=== PATIENT | male | born 1965 | race Caucasian/White ===

== ENCOUNTER 2019-06-08 01:37 | Inpatient (IN) | payer OTHER ==
[~2019-06-08] VITALS: Ht 177.8 cm; Wt 67.8 kg
[2019-06-08 01:37] VITALS: BP 113/80
[~2019-06-08 01:37] MED LIST: ACETAMINOPHEN-1 EAC1 ORAL; ACETAMINOPHEN325 M1 ORAL; ATROVENT HFA12.9 GM HHN; DEPAKOTE250 MG PO; DOCUSATE SODIU100 MG ORAL; KETOCONAZOLE; LEVOTHYROXINE75 MCG ORAL; MEGESTROL400 MG/11 PO; MILK OF MA400 MG/51 ORAL; MIRTAZAPINE30 MG ORAL; MULTIVITAMINS1 EAC8 ORAL; TRIUMEQ 600-501 EACH PO; VITAMIN C500 M1 ORAL
--- NOTE | 2019-06-08 01:37 | NUR ---
ED Nurse Note: PT BIB [facility] FROM [facility] DUE TO "INCREASED AGGRESSION". PT IS YELLING AT STAFF AND REFUSING TO BE PLACED IN GOWN. IV LINE WAS ABLE TO BE ESTABLISHED. BLOOD SPECIMEN TO LAB
--- NOTE | 2019-06-08 01:58 | NUR ---
ED Nurse Note: PT WAS PROVIDED A [place] WITH [facility] ([facility]) APPROVAL.
--- NOTE | 2019-06-08 02:05 | NUR ---
ED Nurse Note: PT REFUSES I&O CATHETER FOR RETRIEVAL OF URINE. ERMD NOTIFIED. WILL AWAIT FURTHER ORDERS.
[2019-06-08 02:17] LABS: HEMATOCRIT 39.1 % (42.0-52.0); HEMOGLOBIN 12.5 G/DL (14.2-18.0); MEAN CORPUSCULAR VOLUME 83 FL (80-99); PLATELET COUNT 60 K/UL (150-450); RED BLOOD COUNT 4.73 M/UL (4.70-6.10); RED CELL DISTRIBUTION WIDTH 15.9 % (11.6-14.8); WHITE BLOOD COUNT 5.1 K/UL (4.8-10.8)
[2019-06-08 02:21] LABS: ANION GAP 7 mmol/L (5-15); BLOOD UREA NITROGEN 22 mg/dL (7-18); CALCIUM 8.6 MG/DL (8.5-10.1); CARBON DIOXIDE 25 MMOL/L (21-32); CHLORIDE 108 MMOL/L (98-107); CREATININE 1.3 MG/DL (0.55-1.30); SODIUM 140 MMOL/L (136-145)
[2019-06-08 02:26] LABS: ALANINE AMINOTRANSFERASE 22 U/L (12-78); ALBUMIN 2.2 G/DL (3.4-5.0); ALBUMIN/GLOBULIN RATIO 0.4 (1.0-2.7); ALKALINE PHOSPHATASE 83 U/L (46-116); AMMONIA 30 umol/L (11-32); ASPARTATE AMINO TRANSFERASE 35 U/L (15-37); BILIRUBIN,TOTAL 0.3 MG/DL (0.2-1.0)
--- NOTE | 2019-06-08 02:39 | NUR ---
ED Nurse Note: PT REFUSES CRE/VRE SWAB.
[2019-06-08] MEDS ORDERED: BISACODYL10 M1 RC (02:54)
[2019-06-08] MEDS ORDERED: CEPHALEXIN500 MG ORAL (02:54)
[2019-06-08] MEDS ORDERED: INVEGA SUS156 MG/11 IM (02:54)
[2019-06-08] MEDS ORDERED: RISPERDAL2 MG ORAL (02:54)
[2019-06-08] MEDS ORDERED: MIRTAZAPINE15 MG ORAL (02:54)
[2019-06-08] MEDS ORDERED: VITAMIN C500 MG/11 PO (02:54)
[2019-06-08 03:50] VITALS: BP 95/58
--- NOTE | 2019-06-08 04:30 | NUR ---
TRANSFER TO FLOOR: Patient transferred to Med Surg as ordered, per ERMD . Report given to SHAWNA Galindo. Pt has no Belongings. vss.
--- NOTE | 2019-06-08 04:40 | NUR ---
NURSE NOTES: Received report via phone from SHAWNA Amato from ED. Patient arrived to the floor via onesimorgriffin, mitch, AOx2, VSS, able to make needs known. Patient is angry and shouting.No belongings. Appears dishevelled and has a few abrasions on forehead. He stated he didn't know where he got them. Called for admission orders, awaiting call back. Will continue to monitor and reassess
--- NOTE | 2019-06-08 05:09 | Emergency Room Report ---
History of Present Illness General Chief Complaint: Altered Mental Status Source: Medical Record, EMS Present Illness HPI 54-year-old male presents ED for evaluation. Brought in by EMS for aggressive behavior. Coming from custodial facility. Nursing states that patient has been aggressive with the nursing staff today. History of psych. Patient states that he does not like the nursing staff. Denies hearing voices. Denies SI or HI. Denies alcohol use. Denies drug use. No other aggravating relieving factors. Denies any other associated symptoms Allergies: Coded Allergies: No Known Allergies (Unverified , 02/12/19) Patient History Past Medical History: GERD, psych hx Past Surgical History: none Pertinent Family History: none Social History: Denies: smoking, alcohol use, drug use Immunizations: UTD Reviewed Nursing Documentation: PMH: Agreed; PSxH: Agreed Nursing Documentation-PMH Past Medical History: No History, Except For Hx Cardiac Problems: No Hx Diabetes: No - ism Hx Cancer: No Hx Gastrointestinal Problems: Yes - Gastric Ulcer Hx Neurological Problems: No Review of Systems All Other Systems: negative except mentioned in HPI Physical Exam Vital Signs Date Time Temp Pulse Resp B/P (MAP) Pulse Ox O2 Delivery O2 Flow Rate FiO2 06/08/19 01:35 98.4 90 18 110/75 (87) 100 Room Air Sp02 EP Interpretation: reviewed, normal General Appearance: alert, GCS 15, non-toxic, cachetic, thin, other - agitated Head: normocephalic Eyes: bilateral eye normal inspection, bilateral eye PERRL ENT: normal ENT inspection Neck: normal inspection Respiratory: chest non-tender, lungs clear, normal breath sounds, speaking full sentences Cardiovascular #1: regular rate, rhythm, no edema Gastrointestinal: normal bowel sounds, non tender, soft, non-distended, no guarding, no rebound Rectal: deferred Genitourinary: no CVA tenderness Musculoskeletal: normal inspection Neurologic: alert, oriented x3, responsive, motor strength/tone normal, sensory intact, speech normal Psychiatric: other - agitated Skin: other - see nursing notes Lymphatic: normal inspection Medical Decision Making Diagnostic Impression: Primary Impression: Acute metabolic encephalopathy Additional Impression: Agitation ER Course Hospital Course 54 yo M presents with aggressive behavior at SNF Differential diagnoses include: ETOH, psychosis, delerium Clinical course She placed on stretcher. On card decorator. After initial history and physical ordered labs, IV fluids, ativan Labs reviewed-electrolytes okay, no leukocytosis, hemoglobin/hematocrit stable, Patient been recently admitted here for similar presentation requiring psychiatric evaluation. Given Ativan in the ED. case discussed with Dr. Menendez and he agreed to accept the patient to his service for further care and support i. I feel this is a highly complex case requiring extensive working including EKG/Rhythm strip, Xray/CT/US, Blood/urine lab work, repeat exams while in ED, and administration of strong opiates/narcotics for pain control, admission to hospital or close patient follow up. Diagnosis - acute metabolic encephalopathy, agitation Admitted to floor in serious condition Labs Test 06/08/19 01:35 White Blood Count 5.1 K/UL (4.8-10.8) Red Blood Count 4.73 M/UL (4.70-6.10) Hemoglobin 12.5 G/DL (14.2-18.0) Hematocrit 39.1 % (42.0-52.0) Mean Corpuscular Volume 83 FL (80-99) Mean Corpuscular Hemoglobin 26.5 PG (27.0-31.0) Mean Corpuscular Hemoglobin Concent 32.1 G/DL (32.0-36.0) Red Cell Distribution Width 15.9 % (11.6-14.8) Platelet Count 60 K/UL (150-450) Mean Platelet Volume 8.0 FL (6.5-10.1) Neutrophils (%) (Auto) % (45.0-75.0) Lymphocytes (%) (Auto) % (20.0-45.0) Monocytes (%) (Auto) % (1.0-10.0) Eosinophils (%) (Auto) % (0.0-3.0) Basophils (%) (Auto) % (0.0-2.0) Sodium Level 140 MMOL/L (136-145) Potassium Level 4.0 MMOL/L (3.5-5.1) Chloride Level 108 MMOL/L (98-107) Carbon Dioxide Level 25 MMOL/L (21-32) Anion Gap 7 mmol/L (5-15) Blood Urea Nitrogen 22 mg/dL (7-18) Creatinine 1.3 MG/DL (0.55-1.30) Estimat Glomerular Filtration Rate 57.5 mL/min (>60) Glucose Level 92 MG/DL (74-106) Calcium Level 8.6 MG/DL (8.5-10.1) Total Bilirubin 0.3 MG/DL (0.2-1.0) Aspartate Amino Transf (AST/SGOT) 35 U/L (15-37) Alanine Aminotransferase (ALT/SGPT) 22 U/L (12-78) Alkaline Phosphatase 83 U/L (46-116) Ammonia 30 umol/L (11-32) Total Protein 7.7 G/DL (6.4-8.2) Albumin 2.2 G/DL (3.4-5.0) Globulin 5.5 g/dL Albumin/Globulin Ratio 0.4 (1.0-2.7) Salicylates Level 4.7 ug/mL (2.8-20) Acetaminophen Level < 2 MCG/ML (10-30) Serum Alcohol < 3 mg/dL Last Vital Signs Date Time Temp Pulse Resp B/P (MAP) Pulse Ox O2 Delivery O2 Flow Rate FiO2 06/08/19 04:29 98.5 93 21 95/56 97 Room Air Status: improved Disposition: ADMITTED INPATIENT Condition: Serious Referrals: Juan Reyes MD (PCP) Shane Nieto MD Jun 08, 2019 05:09
[2019-06-08 05:16] VITALS: BP 120/84
[2019-06-08] MEDS ORDERED: Tylenol #3 tab (300mg/30mg) ORAL PRN (06:30)
[2019-06-08] MEDS: Levothyroxine 25mcg tab ORAL SCH (07:14)
[2019-06-08] MEDS ORDERED: oxyCODONE HCL/Acetaminophen 5/325mg ORAL PRN (07:42)
--- NOTE | 2019-06-08 07:42 | NUR ---
HAND-OFF: Report given to Kylah , patient in stable condition, plan of care endorsed.
--- NOTE | 2019-06-08 07:44 | NUR ---
NURSE NOTES: Received report from SHAWNA Galindo. Pt in bed, awake, agitated, A/Ox1 self, reoriented pt place, time, situation. No complaints of pain, no apparent distress noted, slight edema to left foot, dry skin, abrasion to anterior head noted, IV site patent and flushed, bed in lowest position, call light within reach.
[2019-06-08 08:00] VITALS: BP 136/65
[2019-06-08] MEDS: Milk of Magnesia 30ml Ud ORAL SCH ×2 (09:00→09:08)
[2019-06-08] MEDS: Ascorbic Acid 500mg tab ORAL SCH (09:07)
[2019-06-08] MEDS: Multivitamin w/Minerals tab ORAL SCH (09:07)
[2019-06-08] MEDS: Docusate 100mg cap ORAL SCH (09:07)
--- NOTE | 2019-06-08 09:25 | History and Physical ---
History of Present Illness General Date patient seen: Jun 08, 2019 Reason for Hospitalization: Altered Mental Status Present Illness HPI 54 year old man with history of HIV and AIDS, paranoid schizophrenia, hypothyroidism who was Brought in by EMS for aggressive behavior. Coming from long term facility ([facility]). Nursing states that patient has been aggressive with the nursing staff today. Information obtained via chart review. Patient asked me to leave the room but upon reviewing ER chart he stated that he does not like the nursing staff. Denies hearing voices. Denies SI or HI. Denies alcohol use. Denies drug use. No other aggravating relieving factors. Denies any other associated symptoms. Patient is in denial of his HIV diagnosis. He had a similar presentation and admission in 02/08 and was extensively worked up by neurology, psychiatry, ID and hematology. The patient is uncooperative, will not allow me examine him nor answer my questions. Social History: Patient will not talk Family History Patient will not talk Allergies: Coded Allergies: No Known Allergies Allergies: Coded Allergies: No Known Allergies (Unverified , 02/12/19) Medication History Scheduled Ascorbic Acid* (Vitamin C*), 500 MG ORAL DAILY, (Reported) Cephalexin* (Keflex*), 500 MG ORAL EVERY 12 HOURS, (Reported) Divalproex Sodium* (Depakote*), 1,000 MG PO BID, (Reported) Docusate Sodium* (Docusate Sodium*), 100 MG ORAL DAILY, (Reported) Ipratropium [place] (Atrovent Hfa), 1 UNIT HHN EVERY 4 HOURS, (Reported) Levothyroxine Sodium* (Levothyroxine Sodium*), 25 MCG ORAL DAILY, (Reported) Magnesium Hydroxide* (Milk Of Magnesia*), 30 ML ORAL DAILY, (Reported) Megestrol Acetate (Megestrol Acetate), 400 MG PO BID, (Reported) Mirtazapine* (Remeron*), 30 MG ORAL BEDTIME, (Reported) Mirtazapine* (Remeron*), 15 MG ORAL BEDTIME, (Reported) Multivitamin With Minerals (Multivitamins With Minerals*), 1 TAB ORAL DAILY, ( Reported) Risperidone* (Risperdal*), 3 MG ORAL DAILY, (Reported) Scheduled PRN Acetaminophen With Codeine (T#3) (Tylenol #3 Tab*), 1 TAB ORAL Q6H PRN for For Pain, (Reported) Acetaminophen* (Acetaminophen 325MG Tablet*), 650 MG ORAL Q6H PRN for Mild Pain (Pain Scale 1-3), (Reported) Miscellaneous Medications Abacavir/Dolutegravir/Lamivudi (Triumeq 600-50-300 mg Tablet), 1 EACH PO, ( Reported) Bisacodyl (Bisacodyl), 10 MG RC, (Reported) Paliperidone Palmitate (Invega Sustenna), 156 MG IM, (Reported) Vit C/Ascorbate Ca/Ascorb Sod (Vitamin C 500 Mg/15 Ml Liquid), 500 MG PO, ( Reported) [nizral shampoo], (Reported) Patient History Healthcare decision maker Resuscitation status Full Code Advanced Directive on File No Review of Systems ROS Narrative unable to obtain as patient uncooperative Physical Exam Physical Exam Narrative unable to examine due to lack of cooperation Last 24 Hour Vital Signs Date Time Temp Pulse Resp B/P (MAP) Pulse Ox O2 Delivery O2 Flow Rate FiO2 06/08/19 08:00 98.0 94 17 136/65 (88) 100 06/08/19 07:34 Room Air 06/08/19 05:16 98.0 94 18 120/84 (96) 98 06/08/19 05:06 Room Air 06/08/19 04:29 98.5 93 21 95/56 97 Room Air 06/08/19 03:50 98.2 94 23 95/58 98 Room Air 06/08/19 01:37 94 21 06/08/19 01:37 98.4 91 21 113/80 98 Room Air 06/08/19 01:35 98.4 90 18 110/75 (87) 100 Room Air Intake and Output 06/07/19 06/08/19 19:00 07:00 Intake Total 1000 ml Output Total 0 ml Balance 1000 ml Intake IV Total 1000 ml Output Urine Total 0 ml # Voids 2 Laboratory Tests Test 06/08/19 01:35 White Blood Count 5.1 K/UL (4.8-10.8) Red Blood Count 4.73 M/UL (4.70-6.10) Hemoglobin 12.5 G/DL (14.2-18.0) L Hematocrit 39.1 % (42.0-52.0) L Mean Corpuscular Volume 83 FL (80-99) Mean Corpuscular Hemoglobin 26.5 PG (27.0-31.0) L Mean Corpuscular Hemoglobin Concent 32.1 G/DL (32.0-36.0) Red Cell Distribution Width 15.9 % (11.6-14.8) H Platelet Count 60 K/UL (150-450) L Mean Platelet Volume 8.0 FL (6.5-10.1) Neutrophils (%) (Auto) % (45.0-75.0) Lymphocytes (%) (Auto) % (20.0-45.0) Monocytes (%) (Auto) % (1.0-10.0) Eosinophils (%) (Auto) % (0.0-3.0) Basophils (%) (Auto) % (0.0-2.0) Sodium Level 140 MMOL/L (136-145) Potassium Level 4.0 MMOL/L (3.5-5.1) Chloride Level 108 MMOL/L (98-107) H Carbon Dioxide Level 25 MMOL/L (21-32) Anion Gap 7 mmol/L (5-15) Blood Urea Nitrogen 22 mg/dL (7-18) H Creatinine 1.3 MG/DL (0.55-1.30) Estimat Glomerular Filtration Rate 57.5 mL/min (>60) Glucose Level 92 MG/DL (74-106) Calcium Level 8.6 MG/DL (8.5-10.1) Total Bilirubin 0.3 MG/DL (0.2-1.0) Aspartate Amino Transf (AST/SGOT) 35 U/L (15-37) Alanine Aminotransferase (ALT/SGPT) 22 U/L (12-78) Alkaline Phosphatase 83 U/L (46-116) Ammonia 30 umol/L (11-32) Total Protein 7.7 G/DL (6.4-8.2) Albumin 2.2 G/DL (3.4-5.0) L Globulin 5.5 g/dL Albumin/Globulin Ratio 0.4 (1.0-2.7) L Salicylates Level 4.7 ug/mL (2.8-20) Acetaminophen Level < 2 MCG/ML (10-30) L Serum Alcohol < 3 mg/dL Height (Feet): 5 Height (Inches): 10.00 Weight (Pounds): 150 Medications Current Medications Medications (Trade) Dose Ordered Sig/Guillermo Route PRN Reason Start Time Stop Time Status Last Admin Dose Admin Acetaminophen (Tylenol) 650 mg Q6H PRN ORAL Mild Pain (Pain Scale 1-3) 06/08/19 06:30 07/08/19 06:29 Acetaminophen/ Codeine Phosphate (Tylenol #3) 1 tab Q6H PRN ORAL For Pain 06/08/19 06:30 06/15/19 06:29 Ascorbic Acid (Vitamin C) 500 mg DAILY ORAL 06/08/19 09:00 07/08/19 08:59 06/08/19 09:07 Bisacodyl (Dulcolax) 10 mg DAILYPRN PRN RECTAL Constipation 06/08/19 06:30 07/08/19 06:29 Divalproex Sodium (Depakote) 750 mg BID ORAL 06/08/19 09:00 07/08/19 08:59 06/08/19 09:07 Docusate Sodium (Colace) 100 mg DAILY ORAL 06/08/19 09:00 07/08/19 08:59 06/08/19 09:07 Levothyroxine Sodium (Synthroid) 25 mcg DAILY@0630 ORAL 06/08/19 07:00 07/08/19 06:59 06/08/19 07:14 Magnesium Hydroxide (Mom) 30 ml DAILY ORAL 06/08/19 09:00 07/08/19 08:59 Mirtazapine (Remeron) 15 mg BEDTIME ORAL 06/08/19 21:00 07/08/19 20:59 Multivitamins Therapeutic (Therapeutic Multivitamin) 1 ea DAILY ORAL 06/08/19 09:00 07/08/19 08:59 06/08/19 09:07 Oxycodone/ Acetaminophen (Percocet 10/325) 1 tab Q4H PRN ORAL Severe Pain (Pain Scale 7-10) 06/08/19 07:45 06/15/19 07:44 Oxycodone/ Acetaminophen (Percocet 5-325) 1 tab Q4H PRN ORAL Moderate Pain (Pain Scale 4-6) 06/08/19 07:42 06/15/19 07:41 Risperidone (RisperDAL) 3 mg DAILY ORAL 06/08/19 09:00 07/08/19 08:59 9/16/19 09:07 Assessment/Plan Problem List: (1) Acute metabolic encephalopathy ICD Codes: G93.41 - Metabolic encephalopathy SNOMED: 06708206, 788888486 (2) Paranoid schizophrenia ICD Codes: F20.0 - Paranoid schizophrenia SNOMED: 31233756 (3) AIDS ICD Codes: B20 - Human immunodeficiency virus [HIV] disease SNOMED: 09602520 (4) Agitation ICD Codes: R45.1 - Restlessness and agitation SNOMED: 044708203 (5) Thrombocytopenia associated with AIDS ICD Codes: B20 - Human immunodeficiency virus [HIV] disease; D69.59 - Other secondary thrombocytopenia SNOMED: 130036273 (6) Denial about severity of illness SNOMED: 877558095 (7) Malnutrition ICD Codes: E46 - Unspecified protein-calorie malnutrition SNOMED: 65118896 Status: unchanged Assessment/Plan: 54 year old male with paranoid schizophrenia and AIDS brought in by EMS due to aggressive behavior, per patient he doesn't like the nursing staff. 1. AMS, rule out acute metabolic encephalopathy. ? AIDS dementia and behavioral issues related to HIV labs unremarkable for infection, Tox negative UA pending Seen and evaluated on 02/08 admission by neurology and ID Psychhiatry consult ID consult 2. Chronic thrombocytopenia. associated with AIDS and chronic malnutrition. Evaluated by hematology on recent admission 3. Schizophrenia/ paranoid type. Continue Depakote and risperidone. 4.Hypothyroidism. Continue levothyroxine. check thyroid function tests. I spent 70 minutes on this encounter. 50% or more spent on counselling and care coordination. I spent 35 minute sin chart review. Time of this not reflect time of encounter. Ab Henson M.D. Jun 08, 2019 09:25
[2019-06-08 12:00] VITALS: BP 134/70
--- NOTE | 2019-06-08 12:53 | NUR ---
*-* INSURANCE *-* ALL AVAILABLE CLINICALS HAVE BEEN FAXED TO: [facility]: KAILASH PACHECO P- [phone] F- [phone]....REVIEW/CLINICAL
--- NOTE | 2019-06-08 13:13 | Infectious Diseases Prog Note ---
Assessment/Plan Assessment/Plan Full consult dictated: A) 1) hiv, aids, ams, ? meningitis, ? encephalitis 2) refusing anti-retroviral treatment - asked patient 3 times and he said no to treatmewnt 3) pmh noted 4) allergies - nkda P) 1) prophylaxis started 2) serology ordered, cultures ordered 3) consider psychiatry evaluation, neurology evaluation 4) consider MRI brain and LP 5) d/w Dr. Henson 6) thank you Subjective Allergies: Coded Allergies: No Known Allergies (Unverified , 02/12/19) Objective Vital Signs Last 24 Hour Vital Signs Date Time Temp Pulse Resp B/P (MAP) Pulse Ox O2 Delivery O2 Flow Rate FiO2 06/08/19 12:00 98.1 89 18 134/70 (91) 97 06/08/19 08:00 98.0 94 17 136/65 (88) 100 06/08/19 07:34 Room Air 06/08/19 05:16 98.0 94 18 120/84 (96) 98 06/08/19 05:06 Room Air 06/08/19 04:29 98.5 93 21 95/56 97 Room Air 06/08/19 03:50 98.2 94 23 95/58 98 Room Air 06/08/19 01:37 94 21 06/08/19 01:37 98.4 91 21 113/80 98 Room Air 06/08/19 01:35 98.4 90 18 110/75 (87) 100 Room Air Height (Feet): 5 Height (Inches): 10.00 Weight (Pounds): 150 Laboratory Tests Test 06/08/19 01:35 White Blood Count 5.1 K/UL (4.8-10.8) Red Blood Count 4.73 M/UL (4.70-6.10) Hemoglobin 12.5 G/DL (14.2-18.0) L Hematocrit 39.1 % (42.0-52.0) L Mean Corpuscular Volume 83 FL (80-99) Mean Corpuscular Hemoglobin 26.5 PG (27.0-31.0) L Mean Corpuscular Hemoglobin Concent 32.1 G/DL (32.0-36.0) Red Cell Distribution Width 15.9 % (11.6-14.8) H Platelet Count 60 K/UL (150-450) L Mean Platelet Volume 8.0 FL (6.5-10.1) Neutrophils (%) (Auto) % (45.0-75.0) Lymphocytes (%) (Auto) % (20.0-45.0) Monocytes (%) (Auto) % (1.0-10.0) Eosinophils (%) (Auto) % (0.0-3.0) Basophils (%) (Auto) % (0.0-2.0) Sodium Level 140 MMOL/L (136-145) Potassium Level 4.0 MMOL/L (3.5-5.1) Chloride Level 108 MMOL/L (98-107) H Carbon Dioxide Level 25 MMOL/L (21-32) Anion Gap 7 mmol/L (5-15) Blood Urea Nitrogen 22 mg/dL (7-18) H Creatinine 1.3 MG/DL (0.55-1.30) Estimat Glomerular Filtration Rate 57.5 mL/min (>60) Glucose Level 92 MG/DL (74-106) Calcium Level 8.6 MG/DL (8.5-10.1) Total Bilirubin 0.3 MG/DL (0.2-1.0) Aspartate Amino Transf (AST/SGOT) 35 U/L (15-37) Alanine Aminotransferase (ALT/SGPT) 22 U/L (12-78) Alkaline Phosphatase 83 U/L (46-116) Ammonia 30 umol/L (11-32) Total Protein 7.7 G/DL (6.4-8.2) Albumin 2.2 G/DL (3.4-5.0) L Globulin 5.5 g/dL Albumin/Globulin Ratio 0.4 (1.0-2.7) L Salicylates Level 4.7 ug/mL (2.8-20) Acetaminophen Level < 2 MCG/ML (10-30) L Serum Alcohol < 3 mg/dL Current Medications Medications (Trade) Dose Ordered Sig/Guillermo Route PRN Reason Start Time Stop Time Status Last Admin Dose Admin Acetaminophen (Tylenol) 650 mg Q6H PRN ORAL Mild Pain (Pain Scale 1-3) 06/08/19 06:30 07/08/19 06:29 Acetaminophen/ Codeine Phosphate (Tylenol #3) 1 tab Q6H PRN ORAL For Pain 06/08/19 06:30 06/15/19 06:29 Acyclovir (Zovirax) 400 mg Q12HR ORAL 06/08/19 21:00 07/08/19 20:59 Ascorbic Acid (Vitamin C) 500 mg DAILY ORAL 06/08/19 09:00 07/08/19 08:59 06/08/19 09:07 Bisacodyl (Dulcolax) 10 mg DAILYPRN PRN RECTAL Constipation 06/08/19 06:30 07/08/19 06:29 Divalproex Sodium (Depakote) 750 mg BID ORAL 06/08/19 09:00 07/08/19 08:59 06/08/19 09:07 Docusate Sodium (Colace) 100 mg DAILY ORAL 06/08/19 09:00 07/08/19 08:59 06/08/19 09:07 Levothyroxine Sodium (Synthroid) 25 mcg DAILY@0630 ORAL 06/08/19 07:00 07/08/19 06:59 06/08/19 07:14 Magnesium Hydroxide (Mom) 30 ml DAILY ORAL 06/08/19 09:00 07/08/19 08:59 Mirtazapine (Remeron) 15 mg BEDTIME ORAL 06/08/19 21:00 07/08/19 20:59 Multivitamins Therapeutic (Therapeutic Multivitamin) 1 ea DAILY ORAL 06/08/19 09:00 07/08/19 08:59 06/08/19 09:07 Oxycodone/ Acetaminophen (Percocet 10/325) 1 tab Q4H PRN ORAL Severe Pain (Pain Scale 7-10) 06/08/19 07:45 06/15/19 07:44 Oxycodone/ Acetaminophen (Percocet 5-325) 1 tab Q4H PRN ORAL Moderate Pain (Pain Scale 4-6) 06/08/19 07:42 06/15/19 07:41 Risperidone (RisperDAL) 3 mg DAILY ORAL 06/08/19 09:00 07/08/19 08:59 06/08/19 09:07 Trimethoprim/ Sulfamethoxazole (Bactrim Single Strength) 1 tab DAILY ORAL 06/09/19 09:00 06/16/19 08:59 Sarah Mckeon MD Jun 08, 2019 13:13
--- NOTE | 2019-06-08 15:06 | Diagnostic Imaging Report ---
Indication: Dyspnea Comparison: None A single view chest radiograph was obtained. Findings: There is evidence of emphysema that appears asymmetric and fairly focal involving the left upper lung field. Heart size is normal. No pleural effusion seen. No pneumothorax identified. IMPRESSION: Localized emphysema in the left upper lobe.
--- NOTE | 2019-06-08 15:17 | NUR ---
NURSE NOTES: Confirmed with Dr. Mckeon no need to isolate pt for TB. TB is no suspected, TSPOT is to R/O PNA and infiltrates. Notified MD of CXR results, okayed to change TSPOT order to 06/09/19
[2019-06-08 16:00] VITALS: BP 131/74
[2019-06-08] MEDS ORDERED: LORazepam Inj 2mg/ml 1ml IM SCH (16:00)
[2019-06-08] MEDS ORDERED: DiphenhydrAMINE 50mg/ml Inj IM SCH (16:00)
--- NOTE | 2019-06-08 20:45 | Consultation ---
DATE OF CONSULTATION: 06/08/2019 CONSULTING PHYSICIAN: Miguel Smallwood M.D. HISTORY OF PRESENT ILLNESS: The patient is a 54-year-old male who is well known to this physician from previous admission. The patient has a history of HIV/AIDS with schizophrenia, hypothyroidism. The patient came in due to aggressive behavior. The patient is presenting waxing and waning consciousness, agitation, refusing care, and refusing the lab draws. Poor insight. As a poor historian, yelled at me and stated that he wants to be left alone. PAST PSYCHIATRIC HISTORY: Schizophrenia, has been treated with risperidone and mirtazapine in the past. PAST MEDICAL HISTORY: Significant for HIV/AIDS, malnutrition. ALLERGIES: No known drug allergies. SUBSTANCE ABUSE HISTORY: The patient has a history of illicit drug use, however, now his system is negative for any drugs. MENTAL STATUS EXAMINATION: The patient is alert, oriented times self, place. Mood is irritable. Affect is constricted. Congruent mood. Thought process is concrete. Thought content, no suicidal or homicidal ideation. ASSESSMENT: Irving I Schizophrenia. Irving II Deferred. Irving III As above. HIV/AIDS. Irving IV Moderate. Irving V 25. PLAN: 1. The patient will be started on risperidone 3 mg at bedtime. 2. Remeron 50 mg at bedtime. 3. The patient may not refuse medications. 4. The patient lacks capacity to leave AMA. Miguel Smallwood M.D. DR: VINCE JOB#: [id number] CC:
[2019-06-08] MEDS: Acyclovir 200mg Cap ORAL SCH (21:00)
--- NOTE | 2019-06-08 21:30 | Consultation ---
DATE OF CONSULTATION: 06/08/2019 INFECTIOUS DISEASE CONSULTATION CONSULTING PHYSICIAN: Sarah Mckeon M.D. ATTENDING PHYSICIAN: Juan Reyes M.D. REFERRING PHYSICIAN: Dr. Ab Henson. REASON FOR CONSULTATION: History of HIV/AIDS with possible meningitis encephalitis. CHIEF COMPLAINT: The patient's chief complaint coming into the hospital is encephalopathy. HISTORY OF PRESENT ILLNESS: This is a 54-year-old male with history of HIV and AIDS and noncompliance with anti-retroviral therapy. The patient presents with altered mental status, encephalopathy. The patient is quite cachectic, but is responsive to my questions. Infectious Disease consultation is requested to rule out infectious etiology for encephalopathy. The patient again has been noncompliant with anti-retroviral therapy. It was suggested in the last admission for him to try Triumeq, which was not available here as an outpatient, but it does not look like he has been taking that and currently when I asked him 2 to 3 times if he wants anti-retroviral therapy, he clearly says no. The patient's most recent CD4 viral load on last admission showed the CD4 count of 165 and viral load of 19,890. The patient's serology has been ordered on the patient and put him back on his prophylaxis and on last admission, he had questionable herpes zoster infection or some type of herpes rash and was given acyclovir. Case discussed with Dr. Henson. REVIEW OF SYSTEMS: CONSTITUTIONAL: The patient is responsive, but quite cachectic. He has no fevers. CARDIAC: No chest pain. GASTROINTESTINAL: No nausea, vomiting, or diarrhea. GENITOURINARY: No Zacarias. PULMONARY: No shortness of breath noted. SKIN: No new rash noted. NEUROLOGIC: No seizures noted. He is quite cachectic, fatigued, and generalized weakness. PAST MEDICAL HISTORY: The patient's past medical history includes the following. He has history of HIV and AIDS. Most recent CD4 count was 165. He is noncompliant with anti-retroviral therapy. He is on Bactrim prophylaxis in the previous admission. Other past medical history includes hypothyroidism and getting thyroid supplementation. He has history of schizophrenia, depression, failure to thrive, weakness, and encephalopathy. ALLERGIES: No known drug allergies. SOCIAL HISTORY: Negative for smoking, alcohol, or drug abuse. FAMILY HISTORY: Noncontributory. MEDICATIONS: Noted and reviewed. He is currently off anti-retroviral therapy. I put him on Bactrim and acyclovir suppression and Bactrim prophylaxis. He is on mirtazapine, ascorbic acid, Colace, and Depakote. He is on multivitamins, risperidone, oxycodone, and levothyroxine. He is on acetaminophen and bisacodyl. Outside medications were noted and reconciliated. It looks like as an outpatient he is getting Triumeq. It looks like he was getting that even though right now he does not want treatment. So, I am not clear if he has been getting treatment. We will discuss with pharmacy. PHYSICAL EXAMINATION: VITAL SIGNS: Temperature 98.1, pulse rate 89, respiratory rate 18, blood pressure 134/70, and saturation 97%. GENERAL: Alert and responsive, in no distress. He is quite cachectic. HEAD AND NECK: Oral exam, no thrush. Eye exam, no icterus. Neck is supple. No JVD. Normocephalic. His facial herpes rash has dried and this seems to be improved. HEART: Regular. No gallop or murmur. ABDOMEN: Soft. Positive bowel sounds. Nontender. LUNGS: Clear bilaterally. No rhonchi or rales. SKIN: No other new rash. MUSCULOSKELETAL: No effusion. Legs are without cellulitis. PERIPHERAL VASCULAR: No cyanosis. GENITOURINARY: No Zacarias. LINE SITES: Without phlebitis. NEUROLOGIC: Intact and nonfocal. LABORATORY DATA: White count 5.1 and hemoglobin 12.5. Creatinine 1.3. We have ordered serology for TB Gold, Coxsackie, cryptococcus, toxoplasmosis, RPR. I have also ordered UA cultures and UA was also ordered. Chest x-ray has also been ordered. ASSESSMENT AND PLAN: 1. The patient has history of HIV and AIDS. He has been noncompliant with anti-retroviral therapy. I asked the patient if he wants it 3 times, he said he does not and he was clear about it. However because of his underlying encephalopathy, I would consider Neurology evaluation and psychiatric evaluation to make sure he is competent to say this. It is also unclear if he has been on Triumeq in the outpatient setting. We will discuss with pharmacy about this. May need to restart Triumeq if he was not on it. We will check CD4 and viral load and put him on Bactrim prophylaxis and also acyclovir suppression therapy because of history of recent herpes infection of the face. We will monitor the immune status of the patient with a history of HIV and AIDS. 2. Altered mental status, rule out acute meningitis and encephalitis. He does have an encephalopathy. I do not think he has something like bacterial meningitis, rule out any fevers. However, we will check serology including cryptococcus, serum antigen, also Coxsackie TB Gold and also for positive cryptococcus. Also check RPR and toxoplasmosis serology. I will get Neurology evaluation. He had a CT scan in the last admission. I will consider MRI and the patient may need a lumbar puncture. 3. The patient has history of hypothyroidism. 4. The patient is cachectic. 5. The patient has history of paranoid schizophrenia and agitation. 6. The patient has a history of failure to thrive and weakness and cachectic. 7. Hypothyroidism. Treatment per primary with supplementation. 8. Depression. 9. No known drug allergies. 10. Social history is negative. 11. Family history is noncontributory. 12. MAR was noted. 13. Case was discussed with RN. 14. I discussed the case with Dr. Henson if the patient is not willing to take anti-retroviral therapy and does not want aggressive management for HIV and AIDS, I will consider hospice care in this patient, but previous to that, I would obviously get the psychiatric evaluation to see if he is competent and Neurology evaluation. The patient's overall prognosis is quite poor at this time. 15. Continue treatment per primary consultants. Sarah Mckeon M.D. DR: WALLY JOB#: [id number] CC:
--- NOTE | 2019-06-08 22:24 | NUR ---
NURSE NOTES: Pt in bed, awake and agitated. Pt is on room air with no sig of sob or resp distress. Pt has abrasion on head, denies falling.Pt has IV site Right FA 18g patent and flushed, bed in lowest position, call light within reach, will continue with plan of care
[2019-06-09] VITALS: BP 94/65
--- NOTE | 2019-06-09 00:08 | NUR ---
HAND-OFF: Report given to Anamika MATOS .
[2019-06-09 04:00] VITALS: BP 96/62
[2019-06-09 06:15] LABS: HEMATOCRIT 34.1 % (42.0-52.0); HEMOGLOBIN 10.8 G/DL (14.2-18.0); MEAN CORPUSCULAR VOLUME 85 FL (80-99); PLATELET COUNT 53 K/UL (150-450); RED BLOOD COUNT 4.03 M/UL (4.70-6.10); RED CELL DISTRIBUTION WIDTH 15.1 % (11.6-14.8); WHITE BLOOD COUNT 3.8 K/UL (4.8-10.8)
[2019-06-09] MEDS: Levothyroxine 25mcg tab ORAL SCH (06:27)
[2019-06-09 06:55] LABS: ALANINE AMINOTRANSFERASE 43 U/L (12-78); ALBUMIN 1.8 G/DL (3.4-5.0); ALBUMIN/GLOBULIN RATIO 0.4 (1.0-2.7); ALKALINE PHOSPHATASE 73 U/L (46-116); ANION GAP 8 mmol/L (5-15); ASPARTATE AMINO TRANSFERASE 35 U/L (15-37); BILIRUBIN,TOTAL 0.3 MG/DL (0.2-1.0); BLOOD UREA NITROGEN 21 mg/dL (7-18); CALCIUM 8.2 MG/DL (8.5-10.1); CARBON DIOXIDE 22 MMOL/L (21-32); CHLORIDE 114 MMOL/L (98-107); CREATININE 1.1 MG/DL (0.55-1.30); POTASSIUM 3.9 MMOL/L (3.5-5.1); SODIUM 144 MMOL/L (136-145)
--- NOTE | 2019-06-09 07:30 | NUR ---
NURSE NOTES: Pt in bed, A/A/O, agitated and noncompliant. tend to swear @ staff. refused to eat. on room air with no s/sx of sob or resp distress. Pt has abrasion on head, and refused to give info, stated " none of your business" Pt has IV site Right FA 18g patent and intact. bed in lowest position, locked and alarm on. call light within reach, will continue with plan of care
--- NOTE | 2019-06-09 07:42 | NUR ---
HAND-OFF: Report given to Brandy.
[2019-06-09] MEDS: Bactrim SS Tab ORAL SCH (08:13)
[2019-06-09] MEDS: Milk of Magnesia 30ml Ud ORAL SCH (08:14)
[2019-06-09] MEDS: Docusate 100mg cap ORAL SCH (08:14)
[2019-06-09] MEDS: Acyclovir 200mg Cap ORAL SCH ×2 (08:15→21:00)
[2019-06-09] MEDS: Multivitamin w/Minerals tab ORAL SCH (08:15)
[2019-06-09] MEDS: Ascorbic Acid 500mg tab ORAL SCH (08:15)
--- NOTE | 2019-06-09 08:31 | NUR ---
06/09... pt refused to go to MRI, refused to give reason. Pt appears uncooperative and may be a threat to himself and the machine inside MRI bore if he panics. RN Brandy informed. adam 08:26
--- NOTE | 2019-06-09 09:41 | General Progress Note ---
Assessment/Plan Problem List: (1) Acute metabolic encephalopathy ICD Codes: G93.41 - Metabolic encephalopathy SNOMED: 09730168, 519650165 (2) Paranoid schizophrenia ICD Codes: F20.0 - Paranoid schizophrenia SNOMED: 43595687 (3) AIDS ICD Codes: B20 - Human immunodeficiency virus [HIV] disease SNOMED: 36973263 (4) Agitation ICD Codes: R45.1 - Restlessness and agitation SNOMED: 414862103 (5) Thrombocytopenia associated with AIDS ICD Codes: B20 - Human immunodeficiency virus [HIV] disease; D69.59 - Other secondary thrombocytopenia SNOMED: 007637848 (6) Denial about severity of illness SNOMED: 342144609 (7) Malnutrition ICD Codes: E46 - Unspecified protein-calorie malnutrition SNOMED: 00177755 Status: unchanged Assessment/Plan: 54 year old male with paranoid schizophrenia and AIDS brought in by EMS due to aggressive behavior, per patient he doesn't like the nursing staff. 1. AMS, rule out acute toxic metabolic encephalopathy. ? HIV.AIDS dementia and behavioral issues related to HIV. refusing medications, history of non compliance. rule out infectious diseases. Doubt bacterial meningitis. labs unremarkable for infection, Tox negative. serologies ordered by ID UA pending- patient won't provide sample REFUSED MRI brain ID consult appreciated follow up Cd and VL Prophylaxis with Bactrim. Triumeq not available at [place]. Psychiatry consult- patient has no decisional capacity. d/w Dr. Joaquin 2. Chronic thrombocytopenia. associated with AIDS and chronic malnutrition. Evaluated by hematology on recent admission 3. Schizophrenia/ paranoid type. Continue Depakote and risperidone. 4.Hypothyroidism. Continue levothyroxine. TFTs are okay Hospice consult I spent 40 minutes on this encounter. 50% or more spent on counselling and care coordination. Time of this note may not reflect time of encounter. Subjective Date patient seen: Jun 09, 2019 ROS Limited/Unobtainable: Yes Allergies: Coded Allergies: No Known Allergies (Unverified , 02/12/19) Subjective seen at bedside, Comfortable no distress Tells me to leave him alone doesn't want to answer questions Objective Last 24 Hour Vital Signs Date Time Temp Pulse Resp B/P (MAP) Pulse Ox O2 Delivery O2 Flow Rate FiO2 06/09/19 04:00 97.9 93 18 96/62 (73) 94 9/17/19 00:00 98.1 96 19 94/65 (75) 95 06/08/19 21:00 Room Air 06/08/19 16:00 98.0 86 19 131/74 (93) 98 06/08/19 12:00 98.1 89 18 134/70 (91) 97 Intake and Output 06/08/19 06/09/19 19:00 07:00 Intake Total 950 ml Balance 950 ml Other 950 ml # Voids 2 Laboratory Tests 06/08/19 16:00: Rapid Plasma Reagin Non reactive, Treponema pallidum Ab (FTA-ABS) [Pending], Coccidioides Antibody (Comp Fix) [Pending] 06/09/19 05:15: White Blood Count 3.8L, Red Blood Count 4.03L, Hemoglobin 10.8L, Hematocrit 34.1L, Mean Corpuscular Volume 85, Mean Corpuscular Hemoglobin 26.7L, Mean Corpuscular Hemoglobin Concent 31.6L, Red Cell Distribution Width 15.1H, Platelet Count 53L, Mean Platelet Volume 7.9, Neutrophils (%) (Auto) , Lymphocytes (%) (Auto) , Monocytes (%) (Auto) , Eosinophils (%) (Auto) , Basophils (%) (Auto) , Sodium Level 144, Potassium Level 3.9, Chloride Level 114H, Carbon Dioxide Level 22, Anion Gap 8, Blood Urea Nitrogen 21H, Creatinine 1.1, Estimat Glomerular Filtration Rate > 60, Glucose Level 68L, Calcium Level 8.2L, Total Bilirubin 0.3, Aspartate Amino Transf (AST/SGOT) 35, Alanine Aminotransferase (ALT/SGPT) 43, Alkaline Phosphatase 73, Total Protein 6.8, Albumin 1.8L, Globulin 5.0, Albumin/Globulin Ratio 0.4L, Thyroid Stimulating Hormone (TSH) 4.152H, Free Thyroxine 1.05, Toxoplasma IgG Antibody [Pending], Toxoplasma IgM Antibody [Pending], TB Test (T-Spot) [Pending], TB Test Nil Control (T-Spot) [Pending], TB Test Panel A (T-Spot) [Pending], TB Test Panel B (T-Spot) [Pending], TB Test Positive Control (T-Spot) [Pending] Height (Feet): 5 Height (Inches): 10.00 Weight (Pounds): 150 Ab Henson M.D. Jun 09, 2019 09:41
--- NOTE | 2019-06-09 11:02 | Infectious Diseases Prog Note ---
Assessment/Plan Assessment/Plan ASSESSMENT AND PLAN: 1.HIV/AIDS - refusing medications per RN, hx of non-compliance - f/u on cd4 and VL, prophylaxis ordered, Triumeq not available at [facility] 2. AMS - f/u on infectious diseases serology, further w/u per primary 3. The patient has history of hypothyroidism. 4. The patient is cachectic. 5. The patient has history of paranoid schizophrenia and agitation. 6. The patient has a history of failure to thrive and weakness and cachectic. 7. Hypothyroidism. Treatment per primary with supplementation. 8. Depression. 9. No known drug allergies. 10. Social history is negative. 11. Family history is noncontributory. 12. MAR was noted. 13. Case was discussed with RN. 14. Discussed the case with Dr. Henson 15. Continue treatment per primary consultants. Subjective Constitutional: Reports: fatigue; Denies: fever HEENT: Denies: congestion Respiratory: Denies: shortness of breath Cardiovascular: Denies: chest pain Gastrointestinal/Abdominal: Denies: nausea, vomiting, diarrhea Genitourinary: Reports: other - no bates Neurologic: Denies: headache Psychiatric: Denies: depression Skin: Denies: rash Hematologic: Denies: bleeding Musculoskeletal: Denies: pain Allergies: Coded Allergies: No Known Allergies (Unverified , 02/12/19) Objective Vital Signs Last 24 Hour Vital Signs Date Time Temp Pulse Resp B/P (MAP) Pulse Ox O2 Delivery O2 Flow Rate FiO2 06/09/19 09:00 Room Air 06/09/19 04:00 97.9 93 18 96/62 (73) 94 06/09/19 00:00 98.1 96 19 94/65 (75) 95 06/08/19 21:00 Room Air 06/08/19 16:00 98.0 86 19 131/74 (93) 98 06/08/19 12:00 98.1 89 18 134/70 (91) 97 Height (Feet): 5 Height (Inches): 10.00 Weight (Pounds): 150 General Appearance: no acute distress HEENT: normocephalic, atraumatic, anicteric, mucous membranes moist Respiratory/Chest: lungs clear, normal breath sounds, no respiratory distress Cardiovascular: normal rate, regular rhythm, no gallop/murmur, no JVD Abdomen: normal bowel sounds, soft, non tender, no organomegaly, non distended Genitourinary: other - no bates Extremities: no cyanosis Skin: other - no new rash, old facial herpes rash resolved/dry 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 Findings: There is evidence of emphysema that appears asymmetric and fairly focal involving the left upper lung field. Heart size is normal. No pleural effusion seen. No pneumothorax identified. IMPRESSION: Localized emphysema in the left upper lobe. cultures - pending Laboratory Tests Test 06/08/19 16:00 06/09/19 05:15 Rapid Plasma Reagin Non reactive (Non Reactive) Treponema pallidum Ab (FTA-ABS) Pending Coccidioides Antibody (Comp Fix) Pending White Blood Count 3.8 K/UL (4.8-10.8) L Red Blood Count 4.03 M/UL (4.70-6.10) L Hemoglobin 10.8 G/DL (14.2-18.0) L Hematocrit 34.1 % (42.0-52.0) L Mean Corpuscular Volume 85 FL (80-99) Mean Corpuscular Hemoglobin 26.7 PG (27.0-31.0) L Mean Corpuscular Hemoglobin Concent 31.6 G/DL (32.0-36.0) L Red Cell Distribution Width 15.1 % (11.6-14.8) H Platelet Count 53 K/UL (150-450) L Mean Platelet Volume 7.9 FL (6.5-10.1) Neutrophils (%) (Auto) % (45.0-75.0) Lymphocytes (%) (Auto) % (20.0-45.0) Monocytes (%) (Auto) % (1.0-10.0) Eosinophils (%) (Auto) % (0.0-3.0) Basophils (%) (Auto) % (0.0-2.0) Sodium Level 144 MMOL/L (136-145) Potassium Level 3.9 MMOL/L (3.5-5.1) Chloride Level 114 MMOL/L (98-107) H Carbon Dioxide Level 22 MMOL/L (21-32) Anion Gap 8 mmol/L (5-15) Blood Urea Nitrogen 21 mg/dL (7-18) H Creatinine 1.1 MG/DL (0.55-1.30) Estimat Glomerular Filtration Rate > 60 mL/min (>60) Glucose Level 68 MG/DL (74-106) L Calcium Level 8.2 MG/DL (8.5-10.1) L Total Bilirubin 0.3 MG/DL (0.2-1.0) Aspartate Amino Transf (AST/SGOT) 35 U/L (15-37) Alanine Aminotransferase (ALT/SGPT) 43 U/L (12-78) Alkaline Phosphatase 73 U/L (46-116) Total Protein 6.8 G/DL (6.4-8.2) Albumin 1.8 G/DL (3.4-5.0) L Globulin 5.0 g/dL Albumin/Globulin Ratio 0.4 (1.0-2.7) L Thyroid Stimulating Hormone (TSH) 4.152 uiU/mL (0.358-3.740) Free Thyroxine 1.05 NG/DL (0.76-1.46) Toxoplasma IgG Antibody Pending Toxoplasma IgM Antibody Pending TB Test (T-Spot) Pending TB Test Nil Control (T-Spot) Pending TB Test Panel A (T-Spot) Pending TB Test Panel B (T-Spot) Pending TB Test Positive Control (T-Spot) Pending Current Medications Medications (Trade) Dose Ordered Sig/Guillermo Route PRN Reason Start Time Stop Time Status Last Admin Dose Admin Acetaminophen (Tylenol) 650 mg Q6H PRN ORAL Mild Pain (Pain Scale 1-3) 06/08/19 06:30 07/08/19 06:29 Acetaminophen/ Codeine Phosphate (Tylenol #3) 1 tab Q6H PRN ORAL For Pain 06/08/19 06:30 06/15/19 06:29 Acyclovir (Zovirax) 400 mg Q12HR ORAL 06/08/19 21:00 07/08/19 20:59 Ascorbic Acid (Vitamin C) 500 mg DAILY ORAL 06/08/19 09:00 07/08/19 08:59 06/08/19 09:07 Bisacodyl (Dulcolax) 10 mg DAILYPRN PRN RECTAL Constipation 06/08/19 06:30 07/08/19 06:29 Divalproex Sodium (Depakote) 750 mg BID ORAL 06/08/19 09:00 07/08/19 08:59 06/08/19 17:13 Docusate Sodium (Colace) 100 mg DAILY ORAL 06/08/19 09:00 07/08/19 08:59 06/08/19 09:07 Levothyroxine Sodium (Synthroid) 25 mcg DAILY@0630 ORAL 06/08/19 07:00 07/08/19 06:59 06/09/19 06:27 Magnesium Hydroxide (Mom) 30 ml DAILY ORAL 06/08/19 09:00 07/08/19 08:59 Mirtazapine (Remeron) 15 mg BEDTIME ORAL 06/08/19 21:00 07/08/19 20:59 Multivitamins Therapeutic (Therapeutic Multivitamin) 1 ea DAILY ORAL 06/08/19 09:00 07/08/19 08:59 06/08/19 09:07 Oxycodone/ Acetaminophen (Percocet 10/325) 1 tab Q4H PRN ORAL Severe Pain (Pain Scale 7-10) 06/08/19 07:45 06/15/19 07:44 Oxycodone/ Acetaminophen (Percocet 5-325) 1 tab Q4H PRN ORAL Moderate Pain (Pain Scale 4-6) 06/08/19 07:42 06/15/19 07:41 Risperidone (RisperDAL) 3 mg DAILY ORAL 06/08/19 09:00 07/08/19 08:59 06/08/19 09:07 Trimethoprim/ Sulfamethoxazole (Bactrim Single Strength) 1 tab DAILY ORAL 06/09/19 09:00 06/16/19 08:59 Sarah Mckeon MD Jun 09, 2019 11:02
--- NOTE | 2019-06-09 16:30 | Progress Note ---
DATE: 06/09/2019 SUBJECTIVE: The patient is responding to internal stimuli. Laughing inappropriately. The patient is unable to understand, process, communicate in a rational manner. The patient is impulsive, irritable, angry towards the staff. Not following the directions. He is forgetful. Poor memory. The patient is still refusing care. MENTAL STATUS EXAMINATION: The patient is alert, oriented times self and place. Mood is irritable and angry. Affect is blunted, congruent with mood. Thought process is concrete. Thought content, no suicidal or homicidal ideation. Memory, concentration, and attention is impaired. Insight and judgment non-existent. ASSESSMENT: 1. The patient lacks capacity to make decisions. 2. Recommend hospice placement. PLAN: 1. We will continue the risperidone. 2. Continue the Remeron 15 mg p.o. at bedtime. 3. Provide the patient with reality orientation and supportive therapy. Miguel Smallwood M.D. DR: TERESITA JOB#: [id number] CC:
--- NOTE | 2019-06-09 18:13 | NUR ---
NURSE NOTES: patient remained uncompliant and yelling and swearing to staff but not combative. However, able to consume food intake in a small amount. Will cont the plan of care.
--- NOTE | 2019-06-09 18:57 | NUR ---
HAND-OFF: Report given to Madonna.
--- NOTE | 2019-06-09 21:14 | NUR ---
NURSE NOTES: Patient refusing care. Patient refused meds and vital signs. No s/s of acute distress, gave pudding and juice per patient request.
[2019-06-10] VITALS: BP 103/72
[2019-06-10] MEDS: Levothyroxine 25mcg tab ORAL SCH (06:09)
--- NOTE | 2019-06-10 07:03 | NUR ---
HAND-OFF: Report given to SHAWNA Cain.
--- NOTE | 2019-06-10 07:42 | NUR ---
NURSE NOTES: received report from SHAWNA Peacock. patient in bed. alert. verbally responsive. no respiratory distress noted. no c/o pain at this time. contact isolation. PPE at all times. refused lab work this morning. refused breakfast. IV on RFA 18/ saline lock. bed in the lowest position. call light within reach. alarm on. will continue to provide plan of care.
[2019-06-10] MEDS: Ascorbic Acid 500mg tab ORAL SCH (09:00)
[2019-06-10] MEDS: Docusate 100mg cap ORAL SCH (09:00)
[2019-06-10] MEDS: Acyclovir 200mg Cap ORAL SCH ×2 (09:00→21:13)
[2019-06-10] MEDS: Milk of Magnesia 30ml Ud ORAL SCH (09:00)
[2019-06-10] MEDS: Bactrim SS Tab ORAL SCH (09:00)
[2019-06-10] MEDS: Multivitamin w/Minerals tab ORAL SCH (09:00)
--- NOTE | 2019-06-10 09:16 | NUR ---
NURSE NOTES: patient refused to take VS and medications. RN explained risks and benefits but patient still refused. will continue to monitor patient's condition
--- NOTE | 2019-06-10 09:23 | General Progress Note ---
Assessment/Plan Problem List: (1) Acute metabolic encephalopathy ICD Codes: G93.41 - Metabolic encephalopathy SNOMED: 73987622, 924126847 (2) Paranoid schizophrenia ICD Codes: F20.0 - Paranoid schizophrenia SNOMED: 12970815 (3) AIDS ICD Codes: B20 - Human immunodeficiency virus [HIV] disease SNOMED: 67651673 (4) Agitation ICD Codes: R45.1 - Restlessness and agitation SNOMED: 583434185 (5) Thrombocytopenia associated with AIDS ICD Codes: B20 - Human immunodeficiency virus [HIV] disease; D69.59 - Other secondary thrombocytopenia SNOMED: 502948538 (6) Denial about severity of illness SNOMED: 084226795 (7) Malnutrition ICD Codes: E46 - Unspecified protein-calorie malnutrition SNOMED: 48891004 Status: unchanged Assessment/Plan: 54 year old male with paranoid schizophrenia and AIDS brought in by EMS due to aggressive behavior, per patient he doesn't like the nursing staff. 1. AMS, rule out acute toxic metabolic encephalopathy. ? HIV.AIDS dementia and behavioral issues related to HIV. refusing medications, history of non compliance. rule out infectious diseases. Doubt bacterial meningitis. labs unremarkable for infection, Tox negative. serologies ordered by ID UA pending- patient won't provide sample REFUSED MRI brain REFUSED morning labs ID consult appreciated follow up Cd and VL Prophylaxis with Bactrim. Triumeq not available at [facility]. Psychiatry consult- patient has no decisional capacity. Continue Risperidone and Remeron. d/w Dr. Joaquin 2. Chronic thrombocytopenia. associated with AIDS and chronic malnutrition. Evaluated by hematology on recent admission 3. Schizophrenia/ paranoid type. Continue Depakote and risperidone. 4.Hypothyroidism. Continue levothyroxine. TFTs are okay Hospice consult placed. I spent 40 minutes on this encounter. 50% or more spent on counselling and care coordination. Time of this note may not reflect time of encounter. Subjective Date patient seen: Jun 10, 2019 ROS Limited/Unobtainable: Yes Allergies: Coded Allergies: No Known Allergies (Unverified , 02/12/19) Subjective seen at bedside. Doesn't want to engage in a conversation. Refused morning labs and breakfast. Continues to refuse treatment. He is in no acute distress Objective Last 24 Hour Vital Signs Date Time Temp Pulse Resp B/P (MAP) Pulse Ox O2 Delivery O2 Flow Rate FiO2 06/10/19 09:00 Room Air 06/10/19 00:00 98.1 102 18 103/72 (82) 97 06/09/19 21:24 Room Air Intake and Output 06/09/19 06/10/19 19:00 07:00 Intake Total 600 ml Balance 600 ml Intake Oral 600 ml # Voids 3 2 # Bowel Movements 1 Height (Feet): 5 Height (Inches): 10.00 Weight (Pounds): 149 Objective unable to examine due to lack of cooperation Ab Henson M.D. Jun 10, 2019 09:23
--- NOTE | 2019-06-10 09:58 | NUR ---
NURSE NOTES: Patient seen by Dr. Henson. notified regarding patient refused nursing cares including VS, Medications. patient refused breakfast.i
[2019-06-10 12:00] VITALS: BP 109/78
--- NOTE | 2019-06-10 15:00 | NUR ---
*-* INSURANCE *-* ALL AVAILABLE CLINICALS HAVE BEEN FAXED TO: [facility]: KAILASH PACHECO P- [phone] F- [phone]....REVIEW/CLINICAL
--- NOTE | 2019-06-10 15:03 | Infectious Diseases Prog Note ---
Assessment/Plan Assessment/Plan ASSESSMENT AND PLAN: 1.HIV/AIDS - refusing medications per RN, hx of non-compliance - f/u on cd4 and VL, prophylaxis ordered, Triumeq not available at [place] 2. AMS - f/u on infectious diseases serology, further w/u per primary, rpr negative 3. hospice being considered since patient refusing treatment - hospice called per notes 4. The patient has hx of hypothyroidism 5. The patient has history of paranoid schizophrenia and agitation. 6. The patient has a history of failure to thrive and weakness and cachectic. 7. Hypothyroidism. Treatment per primary with supplementation. 8. Depression. 9. No known drug allergies. 10. Social history is negative. 11. Family history is noncontributory. 12. MAR was noted. 13. Case was discussed with RN. 14. Discussed the case with Dr. Henson 15. Continue treatment per primary consultants. Subjective Constitutional: Reports: other - refusing treatment, discussion and exam ; Denies: fever HEENT: Denies: congestion Respiratory: Denies: shortness of breath Cardiovascular: Denies: chest pain Gastrointestinal/Abdominal: Denies: nausea, vomiting Genitourinary: Reports: dysuria Allergies: Coded Allergies: No Known Allergies (Unverified , 02/12/19) Objective Vital Signs Last 24 Hour Vital Signs Date Time Temp Pulse Resp B/P (MAP) Pulse Ox O2 Delivery O2 Flow Rate FiO2 06/10/19 12:00 97.8 94 16 109/78 (88) 98 06/10/19 09:00 Room Air 06/10/19 00:00 98.1 102 18 103/72 (82) 97 06/09/19 21:24 Room Air Height (Feet): 5 Height (Inches): 10.00 Weight (Pounds): 149 General Appearance: cachetic, other - otherwise refusing exam HEENT: normocephalic, atraumatic Skin: other - no new rash Objective Comparison: None Chest x-ray - A single view chest radiograph was obtained. Findings: There is evidence of emphysema that appears asymmetric and fairly focal involving the left upper lung field. Heart size is normal. No pleural effusion seen. No pneumothorax identified. IMPRESSION: Localized emphysema in the left upper lobe. Microbiology Date/Time Source Procedure Growth Status 06/08/19 16:00 Blood Blood Culture - Preliminary NO GROWTH AFTER 24 HOURS Resulted 06/08/19 16:00 Blood Blood Culture - Preliminary NO GROWTH AFTER 24 HOURS Resulted Current Medications Medications (Trade) Dose Ordered Sig/Guillermo Route PRN Reason Start Time Stop Time Status Last Admin Dose Admin Acetaminophen (Tylenol) 650 mg Q6H PRN ORAL Mild Pain (Pain Scale 1-3) 06/08/19 06:30 07/08/19 06:29 Acetaminophen/ Codeine Phosphate (Tylenol #3) 1 tab Q6H PRN ORAL For Pain 06/08/19 06:30 06/15/19 06:29 Acyclovir (Zovirax) 400 mg Q12HR ORAL 06/08/19 21:00 07/08/19 20:59 Ascorbic Acid (Vitamin C) 500 mg DAILY ORAL 06/08/19 09:00 07/08/19 08:59 06/08/19 09:07 Bisacodyl (Dulcolax) 10 mg DAILYPRN PRN RECTAL Constipation 06/08/19 06:30 07/08/19 06:29 Divalproex Sodium (Depakote) 750 mg Q12HR ORAL 06/09/19 21:00 07/08/19 08:59 Docusate Sodium (Colace) 100 mg DAILY ORAL 06/08/19 09:00 07/08/19 08:59 06/08/19 09:07 Levothyroxine Sodium (Synthroid) 25 mcg DAILY@0630 ORAL 06/08/19 07:00 07/08/19 06:59 06/09/19 06:27 Magnesium Hydroxide (Mom) 30 ml DAILY ORAL 06/08/19 09:00 07/08/19 08:59 Mirtazapine (Remeron) 15 mg BEDTIME ORAL 06/08/19 21:00 07/08/19 20:59 Multivitamins Therapeutic (Therapeutic Multivitamin) 1 ea DAILY ORAL 06/08/19 09:00 07/08/19 08:59 06/08/19 09:07 Oxycodone/ Acetaminophen (Percocet 10/325) 1 tab Q4H PRN ORAL Severe Pain (Pain Scale 7-10) 06/08/19 07:45 06/15/19 07:44 Oxycodone/ Acetaminophen (Percocet 5-325) 1 tab Q4H PRN ORAL Moderate Pain (Pain Scale 4-6) 06/08/19 07:42 9/23/19 07:41 Risperidone (RisperDAL) 3 mg DAILY ORAL 06/08/19 09:00 07/08/19 08:59 06/08/19 09:07 Trimethoprim/ Sulfamethoxazole (Bactrim Single Strength) 1 tab DAILY ORAL 06/09/19 09:00 06/16/19 08:59 Sarah Mckeon MD Jun 10, 2019 15:03
--- NOTE | 2019-06-10 16:26 | NUR ---
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 98.2 HR 90 RR 18 B/P 118/71 CH 101 BUN 22 CXR= EMPHYSEMA IN LEFT UPPER LOBE IS: IV BOLUS NS X 1 LITER ADMITTED TO MED/SURG MED/SURG STATUS DCP RETURN TO [facility]
--- NOTE | 2019-06-10 19:43 | NUR ---
HAND-OFF: Report given to SHAWNA Horton.
--- NOTE | 2019-06-10 19:53 | NUR ---
NURSE NOTES: Pt is in bed,awake and verbal. No acute distress noted. Pt is calm now. Per previous shift nurse, Pt refused care, dressing change and physical assessment. Pt is resistive to care. Fall precaution in place. bed locked low in position,side rails up and call light within reach. Bed alarm on. Pt is asked to call for assistance before getting out of bed. Pt will be monitored.
[2019-06-10 20:00] VITALS: BP 110/71
--- NOTE | 2019-06-11 01:45 | Progress Note ---
DATE: 06/10/2019 SUBJECTIVE: The patient is in bed, no acute distress. Continues to have episodes of agitation and refusing care. The patient is unable to understand process, communicate in a rational manner. Poor insight. MENTAL STATUS EXAMINATION: The patient is calm. Alert and oriented times self. Mood is neutral. Affect is flat. Thought process, there is a paucity of thought content. Thought content, no suicidal or homicidal ideation. ASSESSMENT: The patient lacks capacity to make decision. PLAN: 1. Recommend hospice. 2. Continue to encourage him to take medication. 3. Continue the psychotropic medications. Miguel Smallwood M.D. DR: JANIE JOB#: [id number] CC:
--- NOTE | 2019-06-11 05:00 | NUR ---
NURSE NOTES: Pt refuses care, only wants pain medication. Pt refused to be turned and cleaned despite education and encouragement.
[2019-06-11] MEDS: Levothyroxine 25mcg tab ORAL SCH (06:32)
--- NOTE | 2019-06-11 07:25 | NUR ---
HAND-OFF: Report given to Luke Chester RN.
--- NOTE | 2019-06-11 07:55 | NUR ---
NURSE NOTES: Patient awake alert and eating breakfast; patient couldn't let me to get into his room when I go to introduce myself; patient said am eating breakfast, close the door and go. Will go later to assess and pass medication; will keep monitoring.
[2019-06-11 08:00] VITALS: BP 86/60
--- NOTE | 2019-06-11 09:43 | General Progress Note ---
Assessment/Plan Problem List: (1) Acute metabolic encephalopathy ICD Codes: G93.41 - Metabolic encephalopathy SNOMED: 51644051, 609848334 (2) Paranoid schizophrenia ICD Codes: F20.0 - Paranoid schizophrenia SNOMED: 62677011 (3) AIDS ICD Codes: B20 - Human immunodeficiency virus [HIV] disease SNOMED: 39801322 (4) Agitation ICD Codes: R45.1 - Restlessness and agitation SNOMED: 820907384 (5) Thrombocytopenia associated with AIDS ICD Codes: B20 - Human immunodeficiency virus [HIV] disease; D69.59 - Other secondary thrombocytopenia SNOMED: 828003107 (6) Denial about severity of illness SNOMED: 845355104 (7) Malnutrition ICD Codes: E46 - Unspecified protein-calorie malnutrition SNOMED: 96056974 Status: unchanged Assessment/Plan: 54 year old male with paranoid schizophrenia and AIDS brought in by EMS due to aggressive behavior, per patient he doesn't like the nursing staff. 1. AMS, rule out acute toxic metabolic encephalopathy. ? HIV.AIDS dementia and behavioral issues related to HIV. refusing medications, history of non compliance. rule out infectious diseases. Doubt bacterial meningitis. labs unremarkable for infection, Tox negative. serologies ordered by ID UA pending- patient won't provide sample REFUSED MRI brain REFUSED morning labs ID consult appreciated follow up Cd and VL Prophylaxis with Bactrim. Triumeq not available at [place]. REFUSING meds Psychiatry consult- patient has no decisional capacity. Continue Risperidone and Remeron. d/w Dr. Joaquin 2. Chronic thrombocytopenia. associated with AIDS and chronic malnutrition. Evaluated by hematology on recent admission 3. Schizophrenia/ paranoid type. Continue Depakote and risperidone. 4.Hypothyroidism. Continue levothyroxine. TFTs are okay Hospice consult placed. I will also place a palliative care consult to help with goals of care, code status and transition to hospice. CM and SW aware. I spent 40 minutes on this encounter. 50% or more spent on counselling and care coordination. Time of this note may not reflect time of encounter. Subjective Date patient seen: Jun 11, 2019 ROS Limited/Unobtainable: Yes Allergies: Coded Allergies: No Known Allergies (Unverified , 02/12/19) Subjective seen at bedside. Doesn't want to engage in a conversation. Continues to refuse treatment. He is in no acute distress Objective Last 24 Hour Vital Signs Date Time Temp Pulse Resp B/P (MAP) Pulse Ox O2 Delivery O2 Flow Rate FiO2 06/11/19 09:00 Room Air 06/11/19 08:00 97.8 66 20 86/60 (69) 95 06/10/19 21:00 Room Air 06/10/19 20:00 99.1 91 18 110/71 (84) 97 06/10/19 12:00 97.8 94 16 109/78 (88) 98 Intake and Output 06/10/19 06/11/19 19:00 07:00 Intake Total 500 ml 420 ml Balance 500 ml 420 ml Intake Oral 500 ml 420 ml # Voids 2 2 # Bowel Movements 1 Height (Feet): 5 Height (Inches): 10.00 Weight (Pounds): 149 Objective unable to examine due to lack of cooperation Ab Henson M.D. Jun 11, 2019 09:43
--- NOTE | 2019-06-11 09:54 | NUR ---
NURSE NOTES: Patient wanna be changed, school of nursing director Cristy notified.
[2019-06-11] MEDS: Acyclovir 200mg Cap ORAL SCH ×2 (10:40→21:00)
[2019-06-11] MEDS: Bactrim SS Tab ORAL SCH (10:40)
[2019-06-11] MEDS: Docusate 100mg cap ORAL SCH (10:40)
[2019-06-11] MEDS: Ascorbic Acid 500mg tab ORAL SCH (10:41)
[2019-06-11] MEDS: Multivitamin w/Minerals tab ORAL SCH (10:41)
[2019-06-11] MEDS: Milk of Magnesia 30ml Ud ORAL SCH (10:41)
--- NOTE | 2019-06-11 11:37 | NUR ---
Social Service Note Dr. Deleon completed a palliative care consultation and is recommending code status change and hospice eval. Patient is LPS conserved with Public Guardian Talita ElpidioVaughn [phone]. Message left for Talita. Though patient is conserved a physician will be required to speak with patient's sister Amelia Dc [phone] and mother Feli Dc [phone] and clearly document conversation and family's support or denial for code status change and hospice. This was communicated to Dr. Deleon. Also SW will leave forms in the chart for PMD and Psychiatrist to complete. Will continue to monitor.
--- NOTE | 2019-06-11 12:21 | Consultation ---
History of Present Illness General Date patient seen: Jun 11, 2019 Chief Complaint: Altered Mental Status Present Illness HPI Palliative Care Consult 54 year old male with hx of AIDS, Hepatitis C, emphysema, cachexia, severe protein-calorie malnutrition, bed and wheelchair bound, schizophrenia, AIDS dementia, alf resident, under public conservatorship admitted a few days ago because of acute encephalopathy and aggression against nurses at alf. Pt has been denying his illness. He was seen by psychiatrist who determined that patient lacks any capacity to make medical decisions. I was asked for palliative consult. Pt was laying down in bed, refusing to be examined or even interviewed. Patient lacks capacity to understand the scope of care, hospice and code status. Patient has multiple illnesses that qualify him to get hospice care. He has long standing AIDS, Hepatitis C causing liver disease and thrombocytopenia, cachexia with severe protein and calorie malnutrition as evidenced by Albumin of 1.8. He is incontinent of urine and wets the bed. He is in bed most of the time exposing him to bed sore and its complications. Patient needs to be DNR, since in case of a major event causing heart to stop, no intervention will bring the heart back. CPR will cause futile pain and suffering without benefitting the patient. I have talk to patient's sister ( [phone] and his mother Brittany manriquez in [place] ([phone]). Both of them agree with palliative/ hospice care and change of code status to DNR. Allergies: Coded Allergies: No Known Allergies (Unverified , 02/12/19) Medication History Scheduled Ascorbic Acid* (Vitamin C*), 500 MG ORAL DAILY, (Reported) Cephalexin* (Keflex*), 500 MG ORAL EVERY 12 HOURS, (Reported) Divalproex Sodium* (Depakote*), 1,000 MG PO BID, (Reported) Docusate Sodium* (Docusate Sodium*), 100 MG ORAL DAILY, (Reported) Ipratropium [place] (Atrovent Hfa), 1 UNIT HHN EVERY 4 HOURS, (Reported) Levothyroxine Sodium* (Levothyroxine Sodium*), 25 MCG ORAL DAILY, (Reported) Magnesium Hydroxide* (Milk Of Magnesia*), 30 ML ORAL DAILY, (Reported) Megestrol Acetate (Megestrol Acetate), 400 MG PO BID, (Reported) Mirtazapine* (Remeron*), 30 MG ORAL BEDTIME, (Reported) Mirtazapine* (Remeron*), 15 MG ORAL BEDTIME, (Reported) Multivitamin With Minerals (Multivitamins With Minerals*), 1 TAB ORAL DAILY, ( Reported) Risperidone* (Risperdal*), 3 MG ORAL DAILY, (Reported) Scheduled PRN Acetaminophen With Codeine (T#3) (Tylenol #3 Tab*), 1 TAB ORAL Q6H PRN for For Pain, (Reported) Acetaminophen* (Acetaminophen 325MG Tablet*), 650 MG ORAL Q6H PRN for Mild Pain (Pain Scale 1-3), (Reported) Miscellaneous Medications Abacavir/Dolutegravir/Lamivudi (Triumeq 600-50-300 mg Tablet), 1 EACH PO, ( Reported) Bisacodyl (Bisacodyl), 10 MG RC, (Reported) Paliperidone Palmitate (Invega Sustenna), 156 MG IM, (Reported) Vit C/Ascorbate Ca/Ascorb Sod (Vitamin C 500 Mg/15 Ml Liquid), 500 MG PO, ( Reported) [nizral shampoo], (Reported) Patient History Healthcare decision maker Resuscitation status Full Code Advanced Directive on File No Past Medical/Surgical History Past Medical/Surgical History: (1) Emphysema lung (2) Schizophrenia (3) Malnutrition (4) Thrombocytopenia associated with AIDS (5) Paranoid schizophrenia (6) AIDS Review of Systems All Other Systems: negative except mentioned in HPI Physical Exam Physical Exam Narrative Pt refused to be examined. Last 24 Hour Vital Signs Date Time Temp Pulse Resp B/P (MAP) Pulse Ox O2 Delivery O2 Flow Rate FiO2 06/11/19 11:11 97.8 06/11/19 09:00 Room Air 06/11/19 08:00 97.8 66 20 86/60 (69) 95 06/10/19 21:00 Room Air 06/10/19 20:00 99.1 91 18 110/71 (84) 97 Intake and Output 06/10/19 06/11/19 19:00 07:00 Intake Total 500 ml 420 ml Balance 500 ml 420 ml Intake Oral 500 ml 420 ml # Voids 2 2 # Bowel Movements 1 Height (Feet): 5 Height (Inches): 10.00 Weight (Pounds): 149 Medications Current Medications Medications (Trade) Dose Ordered Sig/Guillermo Route PRN Reason Start Time Stop Time Status Last Admin Dose Admin Acetaminophen (Tylenol) 650 mg Q6H PRN ORAL Mild Pain (Pain Scale 1-3) 06/08/19 06:30 07/08/19 06:29 Acetaminophen/ Codeine Phosphate (Tylenol #3) 1 tab Q6H PRN ORAL For Pain 06/08/19 06:30 06/15/19 06:29 Acyclovir (Zovirax) 400 mg Q12HR ORAL 06/08/19 21:00 07/08/19 20:59 06/11/19 10:40 Ascorbic Acid (Vitamin C) 500 mg DAILY ORAL 06/08/19 09:00 07/08/19 08:59 06/11/19 10:41 Bisacodyl (Dulcolax) 10 mg DAILYPRN PRN RECTAL Constipation 06/08/19 06:30 07/08/19 06:29 Divalproex Sodium (Depakote) 750 mg Q12HR ORAL 06/09/19 21:00 07/08/19 08:59 06/11/19 10:40 Docusate Sodium (Colace) 100 mg DAILY ORAL 06/08/19 09:00 07/08/19 08:59 06/11/19 10:40 Levothyroxine Sodium (Synthroid) 25 mcg DAILY@0630 ORAL 06/08/19 07:00 07/08/19 06:59 06/11/19 06:32 Magnesium Hydroxide (Mom) 30 ml DAILY ORAL 06/08/19 09:00 07/08/19 08:59 06/11/19 10:41 Mirtazapine (Remeron) 15 mg BEDTIME ORAL 06/08/19 21:00 07/08/19 20:59 06/10/19 21:13 Multivitamins Therapeutic (Therapeutic Multivitamin) 1 ea DAILY ORAL 06/08/19 09:00 07/08/19 08:59 06/11/19 10:41 Oxycodone/ Acetaminophen (Percocet 10/325) 1 tab Q4H PRN ORAL Severe Pain (Pain Scale 7-10) 06/08/19 07:45 06/15/19 07:44 06/11/19 10:41 Oxycodone/ Acetaminophen (Percocet 5-325) 1 tab Q4H PRN ORAL Moderate Pain (Pain Scale 4-6) 06/08/19 07:42 06/15/19 07:41 Risperidone (RisperDAL) 3 mg DAILY ORAL 06/08/19 09:00 07/08/19 08:59 06/11/19 10:40 Trimethoprim/ Sulfamethoxazole (Bactrim Single Strength) 1 tab DAILY ORAL 06/09/19 09:00 06/16/19 08:59 06/11/19 10:40 Assessment/Plan Problem List: (1) AIDS ICD Codes: B20 - Human immunodeficiency virus [HIV] disease SNOMED: 38948895 (2) Severe protein-calorie malnutrition ICD Codes: E43 - Unspecified severe protein-calorie malnutrition SNOMED: 686829975, 226838737, 485696551 (3) Hepatitis C ICD Codes: B19.20 - Unspecified viral hepatitis C without hepatic coma SNOMED: 43546156 (4) Schizophrenia ICD Codes: F20.9 - Schizophrenia, unspecified SNOMED: 17064863 (5) Emphysema lung ICD Codes: J43.9 - Emphysema, unspecified SNOMED: 07725798 (6) Agitation ICD Codes: R45.1 - Restlessness and agitation SNOMED: 921600533 (7) Hypothyroidism ICD Codes: E03.9 - Hypothyroidism, unspecified SNOMED: 93472249 Mally Deleon MD Jun 11, 2019 12:21
[2019-06-11] MEDS ORDERED: Haloperidol 5mg/ml Inj IM PRN (12:22)
[2019-06-11] MEDS ORDERED: LORazepam Inj 2mg/ml 1ml IV PRN (12:45)
--- NOTE | 2019-06-11 14:32 | NUR ---
NURSE NOTES: MD Deleon ordered lab draw and patient refused; I communicated the matter to MD Deleon that patient refused lab draw; gave me an order Ativan 0.5 IVP Q4H PRN and I gave the med and communicated lab so that they can come and draw lab; wind energy technician Negat said patient should give them permission to draw blood; I tried to explain to the lab take that if patient is aware, patient gonna refused; MD Deleon wants this lab tests should be done. Will follow up with that.
--- NOTE | 2019-06-11 14:40 | NUR ---
RD ASSESSMENT & RECOMMENDATIONS SEE CARE ACTIVITY FOR COMPLETE ASSESSMENT DAILY ESTIMATED NEEDS: Needs based on HIV, wasting , underweight 49.6kg 35-40 kcals/kg 2359-0872 total kcals 1-2 g protein/kg 50-99 g total protein 25-30 mL/kg 6562-7679 total fluid mLs NUTRITION DIAGNOSIS: Increased kcal and protein needs r/t infection, underweight status and wasting as evidenced by pt w/ HIV, BMI underweight per guidelines, @est 63% of Outing Body Weight w/ generalized moderate to severe wasting. CURRENT DIET: Regular ms chopped PO DIET RECOMMENDATIONS: Regular diet/ texture as tolerated ADDITIONAL RECOMMENDATIONS: 1) Obtain a calibrated bed scale wt 2) Add Ensure TID w/ meals 3) Add snacks in b/w meals 4) Pt on multiple psych meds, monitor alertness for meals.
--- NOTE | 2019-06-11 15:55 | NUR ---
*-* INSURANCE *-* ALL AVAILABLE CLINICALS and REVIEWS HAVE BEEN FAXED TO: [facility]: KAILASH PACHECO P- [phone] f- [phone]....REVIEW/CLINICAL
[2019-06-11 17:10] LABS: HEMATOCRIT 42.6 % (42.0-52.0); HEMOGLOBIN 13.6 G/DL (14.2-18.0); MEAN CORPUSCULAR VOLUME 84 FL (80-99); PLATELET COUNT 48 K/UL (150-450); RED BLOOD COUNT 5.05 M/UL (4.70-6.10); RED CELL DISTRIBUTION WIDTH 14.9 % (11.6-14.8); WHITE BLOOD COUNT 4.4 K/UL (4.8-10.8)
[2019-06-11 17:32] LABS: ALANINE AMINOTRANSFERASE 28 U/L (12-78); ALBUMIN 2.5 G/DL (3.4-5.0); ALBUMIN/GLOBULIN RATIO 0.4 (1.0-2.7); ALKALINE PHOSPHATASE 105 U/L (46-116); ANION GAP 9 mmol/L (5-15); ASPARTATE AMINO TRANSFERASE 46 U/L (15-37); BILIRUBIN,TOTAL 0.4 MG/DL (0.2-1.0); BLOOD UREA NITROGEN 19 mg/dL (7-18); CALCIUM 8.5 MG/DL (8.5-10.1); CARBON DIOXIDE 25 MMOL/L (21-32); CHLORIDE 108 MMOL/L (98-107); CREATININE 1.3 MG/DL (0.55-1.30); POTASSIUM 4.4 MMOL/L (3.5-5.1); SODIUM 141 MMOL/L (136-145)
--- NOTE | 2019-06-11 19:34 | NUR ---
HAND-OFF: Report given to SHAWNA Peoples.
--- NOTE | 2019-06-11 19:46 | NUR ---
NURSE NOTES: Received report from SHAWNA Sales. Patient is in bed sleeping. On room air with no signs of distress or SOB. Right FA IV intact. Bed locked and in lowest position. Call light in reach. Will continue to monitor the patient.
--- NOTE | 2019-06-11 21:50 | NUR ---
NURSE NOTES: Patient refused all PM medications despite explaining the risks and benefits.
--- NOTE | 2019-06-12 04:23 | NUR ---
NURSE NOTES: Patient refusing vital signs to be taken despite encouragement. Only requesting snacks and water. Will continue to monitor.
--- NOTE | 2019-06-12 05:52 | NUR ---
NURSE NOTES: Patient refused lab to take blood this am. Patient is also still refusing any medication.
[2019-06-12] MEDS: Levothyroxine 25mcg tab ORAL SCH (06:04)
--- NOTE | 2019-06-12 07:14 | NUR ---
HAND-OFF: Report given to SHAWNA Sales.
--- NOTE | 2019-06-12 07:26 | NUR ---
NURSE NOTES: Patient awake, alert x3; on room air, no sing of distress and shortness of breath; no sign of chest pain; IV RFA 18G flushes well; patient stated am dieing, I don't wanna eat my breakfast; RN encourage patient to eat; side rails x2, breaks engaged, bed at lowest position; call light within reach; will keep monitoring.
[2019-06-12] MEDS: Docusate 100mg cap ORAL SCH (09:00)
[2019-06-12] MEDS: Bactrim SS Tab ORAL SCH (09:00)
[2019-06-12] MEDS: Acyclovir 200mg Cap ORAL SCH (09:00)
[2019-06-12] MEDS: Milk of Magnesia 30ml Ud ORAL SCH (09:00)
--- NOTE | 2019-06-12 11:25 | NUR ---
*-* INSURANCE *-* UPDATED CLINICALS HAVE BEEN FAXED TO: [facility]: KAILASH PACHECO P- [phone] F- [phone]....REVIEW/CLINICAL
--- NOTE | 2019-06-12 14:43 | NUR ---
Social Service Note BRITTON spoke with public guardian Talita MagallanesDevinRoderick [phone] and informed her of the request of code status change and hospice referral. BRITTON obtained faxed number to faxed documentation [phone]. Pending completion of psychiatric declaration form. Once completed BRITTON will faxed forms and records. Will continue to monitor.
--- NOTE | 2019-06-12 15:17 | General Progress Note ---
Assessment/Plan Problem List: (1) Acute metabolic encephalopathy ICD Codes: G93.41 - Metabolic encephalopathy SNOMED: 91773519, 947987597 (2) Paranoid schizophrenia ICD Codes: F20.0 - Paranoid schizophrenia SNOMED: 19237682 (3) AIDS ICD Codes: B20 - Human immunodeficiency virus [HIV] disease SNOMED: 87881468 (4) Agitation ICD Codes: R45.1 - Restlessness and agitation SNOMED: 358700895 (5) Thrombocytopenia associated with AIDS ICD Codes: B20 - Human immunodeficiency virus [HIV] disease; D69.59 - Other secondary thrombocytopenia SNOMED: 786441214 (6) Denial about severity of illness SNOMED: 979307214 (7) Malnutrition ICD Codes: E46 - Unspecified protein-calorie malnutrition SNOMED: 53966034 Status: unchanged Assessment/Plan: 54 year old male with paranoid schizophrenia and AIDS brought in by EMS due to aggressive behavior, per patient he doesn't like the nursing staff. 1. AMS, rule out acute toxic metabolic encephalopathy. ? HIV.AIDS dementia and behavioral issues related to HIV. refusing medications, history of non compliance. rule out infectious diseases. Doubt bacterial meningitis. labs unremarkable for infection, Tox negative. serologies ordered by ID UA pending- patient won't provide sample REFUSED MRI brain REFUSED morning labs ID consult appreciated follow up Cd and VL Prophylaxis with Bactrim. Triumeq not available at [facility]. REFUSING meds Psychiatry consult- patient has no decisional capacity. Continue Risperidone and Remeron. d/w Dr. Joaquin 2. Chronic thrombocytopenia. associated with AIDS and chronic malnutrition. Evaluated by hematology on recent admission 3. Schizophrenia/ paranoid type. Continue Depakote and risperidone. 4.Hypothyroidism. Continue levothyroxine. TFTs are okay Hospice consult placed. palliative care consult placed. In the process of changing code status and hospice placement. Form left on the chart to be filled out by Dr. Smallwood. prognosis poor I spent 40 minutes on this encounter. 50% or more spent on counselling and care coordination. Time of this note may not reflect time of encounter. Subjective Date patient seen: Jun 12, 2019 ROS Limited/Unobtainable: Yes Allergies: Coded Allergies: No Known Allergies (Unverified , 02/12/19) Subjective seen at bedside. Doesn't want to engage in a conversation. Continues to refuse treatment. He is in no acute distress Dr. Deleon completed a palliative care consultation and is recommending code status change and hospice eval. Patient is LPS conserved with Public Guardian Talita Sam [phone]. SW left message for Talita. Though patient is conserved a physician was required to speak with patient's sister Amelia Dc [phone] and mother Feli Dc [phone] and clearly document conversation and family's support or denial for code status change and hospice, this was done by Dr. Deleon. Forms to be filled out by psychiatrist as well. Objective Last 24 Hour Vital Signs Date Time Temp Pulse Resp B/P (MAP) Pulse Ox O2 Delivery O2 Flow Rate FiO2 06/12/19 09:00 Room Air 06/11/19 21:00 Room Air Intake and Output 06/11/19 06/12/19 19:00 07:00 Intake Total 600 ml Balance 600 ml Other 600 ml # Voids 1 Laboratory Tests 06/11/19 15:20: White Blood Count 4.8, Red Blood Count 5.05, Hemoglobin 13.6L, Hematocrit 42.6, Mean Corpuscular Volume 84, Mean Corpuscular Hemoglobin 26.9L, Mean Corpuscular Hemoglobin Concent 31.9L, Red Cell Distribution Width 14.9H, Platelet Count 48L , Mean Platelet Volume 11.0H, Neutrophils (%) (Auto) , Lymphocytes (%) (Auto) , Monocytes (%) (Auto) , Eosinophils (%) (Auto) , Basophils (%) (Auto) , Differential Total Cells Counted 50, Neutrophils % (Manual) 38L, Lymphocytes % ( Manual) 40, Monocytes % (Manual) 14H, Eosinophils % (Manual) 0, Basophils % ( Manual) 0, Band Neutrophils 8, Lymphocytes 51, Nucleated Red Blood Cells , Platelet Estimate DecreasedL, Platelet Morphology , Giant Platelets Occasional, Prothrombin Time 10.6, Prothromb Time International Ratio 1.0, Activated Partial Thromboplast Time 33, Sodium Level 141, Potassium Level 4.4, Chloride Level 108H, Carbon Dioxide Level 25, Anion Gap 9, Blood Urea Nitrogen 19H, Creatinine 1.3, Estimat Glomerular Filtration Rate 57.5, Glucose Level 84, Calcium Level 8.5, Total Bilirubin 0.4, Aspartate Amino Transf (AST/SGOT) 46H, Alanine Aminotransferase (ALT/SGPT) 28, Alkaline Phosphatase 105, Total Protein 8.7H, Albumin 2.5L, Globulin 6.2, Albumin/Globulin Ratio 0.4L, Absolute Lymphocytes (Cell Immunity 2.4, Percent CD3 Cells 86.4H, Absolute CD3 Count 2074 , Percent CD4 Cells 7.5L, Absolute CD4 Count 180L, T-Lymphocyte CD4/CD8 Ratio 0.10L, Percent CD8 Cells 78.3H, Absolute CD8 Count 1879H Height (Feet): 5 Height (Inches): 10.00 Weight (Pounds): 149 Objective unable to examine due to lack of cooperation Ab Henson M.D. Jun 12, 2019 15:17
--- NOTE | 2019-06-12 15:29 | Pulmonology Progress Note ---
Assessment/Plan Problems: (1) End of life care (2) AIDS (3) Severe protein-calorie malnutrition (4) Hepatitis C (5) Schizophrenia (6) Emphysema lung (7) Agitation (8) Hypothyroidism Assessment/Plan Medical forms for public guardian filled up awaiting forms from psychiatry to submit to [facility] symptomatic treatment Subjective ROS Limited/Unobtainable: No Constitutional: Reports: no symptoms HEENT: Repors: no symptoms Allergies: Coded Allergies: No Known Allergies (Unverified , 02/12/19) Objective Last 24 Hour Vital Signs Date Time Temp Pulse Resp B/P (MAP) Pulse Ox O2 Delivery O2 Flow Rate FiO2 06/12/19 09:00 Room Air 06/11/19 21:00 Room Air Intake and Output 06/11/19 06/12/19 19:00 07:00 Intake Total 600 ml Balance 600 ml Other 600 ml # Voids 1 General Appearance: cachetic HEENT: normocephalic, atraumatic Respiratory/Chest: lungs clear Current Medications Medications (Trade) Dose Ordered Sig/Guillermo Route PRN Reason Start Time Stop Time Status Last Admin Dose Admin Acetaminophen (Tylenol) 650 mg Q6H PRN ORAL Mild Pain (Pain Scale 1-3) 06/08/19 06:30 07/08/19 06:29 Acetaminophen/ Codeine Phosphate (Tylenol #3) 1 tab Q6H PRN ORAL For Pain 06/08/19 06:30 06/15/19 06:29 Acyclovir (Zovirax) 400 mg Q12HR ORAL 06/08/19 21:00 07/08/19 20:59 06/11/19 10:40 Bisacodyl (Dulcolax) 10 mg DAILYPRN PRN RECTAL Constipation 06/08/19 06:30 07/08/19 06:29 Divalproex Sodium (Depakote) 750 mg Q12HR ORAL 06/09/19 21:00 07/08/19 08:59 06/11/19 10:40 Docusate Sodium (Colace) 100 mg DAILY ORAL 06/08/19 09:00 07/08/19 08:59 06/11/19 10:40 Haloperidol Lactate (Haldol) 5 mg Q6H PRN IM Agitation 06/11/19 12:22 07/11/19 12:21 Levothyroxine Sodium (Synthroid) 25 mcg DAILY@0630 ORAL 06/08/19 07:00 07/08/19 06:59 06/11/19 06:32 Lorazepam (Ativan 2mg/ml 1ml) 1 mg Q4H PRN IV For Anxiety 06/11/19 12:45 06/18/19 12:44 06/11/19 12:52 Magnesium Hydroxide (Mom) 30 ml DAILY ORAL 06/08/19 09:00 07/08/19 08:59 06/11/19 10:41 Mirtazapine (Remeron) 15 mg BEDTIME ORAL 06/08/19 21:00 07/08/19 20:59 06/10/19 21:13 Oxycodone/ Acetaminophen (Percocet 10/325) 1 tab Q4H PRN ORAL Severe Pain (Pain Scale 7-10) 06/08/19 07:45 06/15/19 07:44 06/11/19 10:41 Oxycodone/ Acetaminophen (Percocet 5-325) 1 tab Q4H PRN ORAL Moderate Pain (Pain Scale 4-6) 06/08/19 07:42 06/15/19 07:41 Risperidone (RisperDAL) 3 mg DAILY ORAL 06/08/19 09:00 07/08/19 08:59 06/11/19 10:40 Trimethoprim/ Sulfamethoxazole (Bactrim Single Strength) 1 tab DAILY ORAL 06/09/19 09:00 06/16/19 08:59 06/11/19 10:40 Mally Deleon MD Jun 12, 2019 15:29
--- NOTE | 2019-06-12 17:13 | NUR ---
EXECUTIVE VICE PRESIDENT BUSINESS DEVELOPMENTCONTRACTING ANALYST PT ACCEPTED BACK TO ROOM 209 BED B. LONGTERM. [facility] TO TRANSPORT PT.
--- NOTE | 2019-06-12 17:35 | Infectious Diseases Prog Note ---
Assessment/Plan Assessment/Plan ASSESSMENT AND PLAN: 1.HIV/AIDS - refusing medications per RN, hx of non-compliance - f/u on cd4 and VL, prophylaxis ordered, Triumeq not available at [place] 2. AMS - f/u on infectious diseases serology, further w/u per primary, rpr negative 3. hospice care 4. The patient has hx of hypothyroidism 5. The patient has history of paranoid schizophrenia and agitation. 6. The patient has a history of failure to thrive and weakness and cachectic. 7. Hypothyroidism. Treatment per primary with supplementation. 8. Depression. 9. No known drug allergies. 10. Social history is negative. 11. Family history is noncontributory. 12. MAR was noted. 13. Case was discussed with RN. 14. Discussed the case with Dr. Henson 15. Continue treatment per primary consultants. Subjective Constitutional: Reports: fatigue, other - refusing treatment ; Denies: fever HEENT: Denies: congestion Respiratory: Denies: shortness of breath Cardiovascular: Denies: chest pain Gastrointestinal/Abdominal: Denies: nausea, vomiting, diarrhea Genitourinary: Reports: other - no bates Allergies: Coded Allergies: No Known Allergies (Unverified , 02/12/19) Objective Vital Signs Last 24 Hour Vital Signs Date Time Temp Pulse Resp B/P (MAP) Pulse Ox O2 Delivery O2 Flow Rate FiO2 06/12/19 09:00 Room Air 06/11/19 21:00 Room Air Height (Feet): 5 Height (Inches): 10.00 Weight (Pounds): 149 General Appearance: no acute distress HEENT: normocephalic, atraumatic, anicteric Respiratory/Chest: lungs clear, normal breath sounds, no respiratory distress Cardiovascular: normal rate, regular rhythm, no gallop/murmur, no JVD Abdomen: normal bowel sounds, soft, non tender, no organomegaly, non distended Genitourinary: other - no bates Extremities: no cyanosis Skin: other - no new rash Neurologic/Psychiatric: nursing education consultant II-XII grossly normal, alert, oriented x 3, responsive Lymphatic: no neck adenopathy Musculoskeletal: no effusion Objective Comparison: None Chest x-ray - A single view chest radiograph was obtained. Findings: There is evidence of emphysema that appears asymmetric and fairly focal involving the left upper lung field. Heart size is normal. No pleural effusion seen. No pneumothorax identified. IMPRESSION: Localized emphysema in the left upper lobe. Microbiology Date/Time Source Procedure Growth Status 06/08/19 16:00 Blood Blood Culture - Preliminary NO GROWTH AFTER 72 HOURS Resulted Labs Test 06/11/19 15:20 White Blood Count 4.8 x10E3/uL (3.4-10.8) Red Blood Count 5.05 M/UL (4.70-6.10) Hemoglobin 13.6 G/DL (14.2-18.0) Hematocrit 42.6 % (42.0-52.0) Mean Corpuscular Volume 84 FL (80-99) Mean Corpuscular Hemoglobin 26.9 PG (27.0-31.0) Mean Corpuscular Hemoglobin Concent 31.9 G/DL (32.0-36.0) Red Cell Distribution Width 14.9 % (11.6-14.8) Platelet Count 48 K/UL (150-450) Mean Platelet Volume 11.0 FL (6.5-10.1) Neutrophils (%) (Auto) % (45.0-75.0) Lymphocytes (%) (Auto) % (20.0-45.0) Monocytes (%) (Auto) % (1.0-10.0) Eosinophils (%) (Auto) % (0.0-3.0) Basophils (%) (Auto) % (0.0-2.0) Differential Total Cells Counted 50 Neutrophils % (Manual) 38 % (45-75) Lymphocytes % (Manual) 40 % (20-45) Monocytes % (Manual) 14 % (1-10) Eosinophils % (Manual) 0 % (0-3) Basophils % (Manual) 0 % (0-2) Band Neutrophils 8 % (0-8) Lymphocytes 51 % (Not Estab.) Nucleated Red Blood Cells (.) Platelet Estimate Decreased Platelet Morphology Giant Platelets Occasional Prothrombin Time 10.6 SEC (9.30-11.50) Prothromb Time International Ratio 1.0 (0.9-1.1) Activated Partial Thromboplast Time 33 SEC (23-33) Sodium Level 141 MMOL/L (136-145) Potassium Level 4.4 MMOL/L (3.5-5.1) Chloride Level 108 MMOL/L (98-107) Carbon Dioxide Level 25 MMOL/L (21-32) Anion Gap 9 mmol/L (5-15) Blood Urea Nitrogen 19 mg/dL (7-18) Creatinine 1.3 MG/DL (0.55-1.30) Estimat Glomerular Filtration Rate 57.5 mL/min (>60) Glucose Level 84 MG/DL (74-106) Calcium Level 8.5 MG/DL (8.5-10.1) Total Bilirubin 0.4 MG/DL (0.2-1.0) Aspartate Amino Transf (AST/SGOT) 46 U/L (15-37) Alanine Aminotransferase (ALT/SGPT) 28 U/L (12-78) Alkaline Phosphatase 105 U/L (46-116) Total Protein 8.7 G/DL (6.4-8.2) Albumin 2.5 G/DL (3.4-5.0) Globulin 6.2 g/dL Albumin/Globulin Ratio 0.4 (1.0-2.7) Absolute Lymphocytes (Cell Immunity 2.4 x10E3/uL (0.7-3.1) Percent CD3 Cells 86.4 % (57.5-86.2) Absolute CD3 Count 2074 /uL (622-2402) Percent CD4 Cells 7.5 % (30.8-58.5) Absolute CD4 Count 180 /uL (359-1519) T-Lymphocyte CD4/CD8 Ratio 0.10 (0.92-3.72) Percent CD8 Cells 78.3 % (12.0-35.5) Absolute CD8 Count 1879 /uL (109-897) Current Medications Medications (Trade) Dose Ordered Sig/Guillermo Route PRN Reason Start Time Stop Time Status Last Admin Dose Admin Acetaminophen (Tylenol) 650 mg Q6H PRN ORAL Mild Pain (Pain Scale 1-3) 06/08/19 06:30 07/08/19 06:29 Acetaminophen/ Codeine Phosphate (Tylenol #3) 1 tab Q6H PRN ORAL For Pain 06/08/19 06:30 06/15/19 06:29 Acyclovir (Zovirax) 400 mg Q12HR ORAL 06/08/19 21:00 07/08/19 20:59 06/11/19 10:40 Bisacodyl (Dulcolax) 10 mg DAILYPRN PRN RECTAL Constipation 06/08/19 06:30 07/08/19 06:29 Divalproex Sodium (Depakote) 750 mg Q12HR ORAL 06/09/19 21:00 07/08/19 08:59 06/11/19 10:40 Docusate Sodium (Colace) 100 mg DAILY ORAL 06/08/19 09:00 07/08/19 08:59 06/11/19 10:40 Haloperidol Lactate (Haldol) 5 mg Q6H PRN IM Agitation 06/11/19 12:22 07/11/19 12:21 Levothyroxine Sodium (Synthroid) 25 mcg DAILY@0630 ORAL 06/08/19 07:00 07/08/19 06:59 06/11/19 06:32 Lorazepam (Ativan 2mg/ml 1ml) 1 mg Q4H PRN IV For Anxiety 06/11/19 12:45 06/18/19 12:44 06/11/19 12:52 Magnesium Hydroxide (Mom) 30 ml DAILY ORAL 06/08/19 09:00 07/08/19 08:59 06/11/19 10:41 Mirtazapine (Remeron) 15 mg BEDTIME ORAL 06/08/19 21:00 07/08/19 20:59 06/10/19 21:13 Oxycodone/ Acetaminophen (Percocet 10/325) 1 tab Q4H PRN ORAL Severe Pain (Pain Scale 7-10) 06/08/19 07:45 06/15/19 07:44 06/11/19 10:41 Oxycodone/ Acetaminophen (Percocet 5-325) 1 tab Q4H PRN ORAL Moderate Pain (Pain Scale 4-6) 06/08/19 07:42 06/15/19 07:41 Risperidone (RisperDAL) 3 mg DAILY ORAL 06/08/19 09:00 07/08/19 08:59 06/11/19 10:40 Trimethoprim/ Sulfamethoxazole (Bactrim Single Strength) 1 tab DAILY ORAL 06/09/19 09:00 06/16/19 08:59 06/11/19 10:40 Sarah Mckeon MD Jun 12, 2019 17:35
--- NOTE | 2019-06-12 17:44 | Discharge Summary ---
Discharge Summary Hospital Course Date of Admission Jun 08, 2019 at 02:32 Date of Discharge 06/12/19 Admitting Diagnosis acute encephalopathy, agitation HPI Norm Manriquez is a 54 year old male who was admitted on Jun 08, 2019 at 02:32 for Acute Encephalopathy,Agitation Consultations Infectious disease: Dr. Joaquin Psychiatry Palliative Hospice Procedures CXR. patient refused most medical treatment Hospital Course 54 year old male with paranoid schizophrenia and AIDS brought in by EMS due to aggressive behavior, per patient he doesn't like the nursing staff. Very difficult and refuses medical treatment 1. AMS, rule out acute toxic metabolic encephalopathy. ? HIV.AIDS dementia and behavioral issues related to HIV. refusing medications, history of non compliance. rule out infectious diseases. Doubt bacterial meningitis. labs unremarkable for infection, Tox negative. serologies ordered by ID UA pending- patient won't provide sample REFUSED MRI brain REFUSED morning labs ID consult appreciated, recommended hospice consultation. Prophylaxis with Bactrim. Triumeq not available at [place]. REFUSING meds Psychiatry consult- patient has no decisional capacity. Continue Risperidone and Remeron. Recommended hospice 2. Chronic thrombocytopenia. associated with AIDS and chronic malnutrition. Evaluated by hematology on recent admission 3. Schizophrenia/ paranoid type. Continue Depakote and risperidone. 4.Hypothyroidism. Continue levothyroxine. TFTs are okay. Hospice consult placed. palliative care consult placed. Palliative microsoft infrastructure consultant spoke with patient's sister ( [phone] and his mother Brittany manriquez in [place] ([phone]). Both of them agreed with palliative/ hospice care (see microsoft infrastructure consultant documentation). Patient will be transported back to [facility] under hospice care. I spent 35 minutes on this encounter. 50% or more spent on counselling and care coordination. Discharge Medications Continued Medications: Acetaminophen With Codeine (T#3) (Tylenol #3 Tab*) Y Tab 1 TAB ORAL Q6H PRN for For Pain, TAB Acetaminophen* (Acetaminophen 325MG Tablet*) 325 Mg Tablet 650 MG ORAL Q6H PRN for Mild Pain (Pain Scale 1-3), TAB Risperidone* (Risperdal*) 2 Mg Tablet 3 MG ORAL DAILY, #30 TAB 0 Refills Discontinued Medications: Abacavir/Dolutegravir/Lamivudi (Triumeq 600-50-300 mg Tablet) 1 Each Tablet 1 EACH PO, TAB Ascorbic Acid* (Vitamin C*) 500 Mg Tablet 500 MG ORAL DAILY, #30 TAB 0 Refills Bisacodyl (Bisacodyl) 10 Mg Supp.rect 10 MG RC, SUPP Cephalexin* (Keflex*) 500 Mg Capsule 500 MG ORAL EVERY 12 HOURS, #14 CAP 0 Refills Divalproex Sodium* (Depakote*) 250 Mg Tablet.dr 1000 MG PO BID, TAB Docusate Sodium* (Docusate Sodium*) 100 Mg Capsule 100 MG ORAL DAILY, CAP Ipratropium [place] (Atrovent Hfa) 12.9 Gm Hfa.aer.ad 1 UNIT HHN EVERY 4 HOURS for sob Levothyroxine Sodium* (Levothyroxine Sodium*) 75 Mcg Tablet 25 MCG ORAL DAILY, TAB Take in the morning on an empty stomach, at least 30 minutes before food. Magnesium Hydroxide* (Milk Of Magnesia*) 400 Mg/5 Ml Oral.susp 30 ML ORAL DAILY, ML Megestrol Acetate (Megestrol Acetate) 400 Mg/10 Ml Oral.susp 400 MG PO BID, ML Mirtazapine* (Remeron*) 30 Mg Tablet 30 MG ORAL BEDTIME, TAB Mirtazapine* (Remeron*) 15 Mg Tablet 15 MG ORAL BEDTIME, TAB Multivitamin With Minerals (Multivitamins With Minerals*) 1 Each Tablet 1 TAB ORAL DAILY, TAB [nizral shampoo] () Paliperidone Palmitate (Invega Sustenna) 156 Mg/1 Ml Syringe 156 MG IM, EA Vit C/Ascorbate Ca/Ascorb Sod (Vitamin C 500 Mg/15 Ml Liquid) 500 Mg/15 Ml Liquid 500 MG PO, ML Discharge Condition Upon Discharge: grave Discharge Disposition Patient was discharged to [facility], under hospice status Discharge Diagnoses: (1) Acute metabolic encephalopathy (2) AIDS (3) Paranoid schizophrenia (4) Thrombocytopenia associated with AIDS (5) Severe protein-calorie malnutrition (6) Hepatitis C (7) Hypothyroidism (8) End of life care Ab Henson M.D. Jun 12, 2019 17:44
--- NOTE | 2019-06-12 19:14 | NUR ---
HAND-OFF: Report given to SHAWNA Peoples.
--- NOTE | 2019-06-12 20:10 | NUR ---
NURSE NOTES: Patient in bed, awake and alert x2. On room air with no signs of SOB. Patient is being discharged at this time to [facility]. Ambulance present. Report given to [place]. No belongings. Removed wristbands. IV still intact upon discharge per request of SNF staff. Will notify . No meds given.
--- NOTE | 2019-06-13 03:30 | Progress Note ---
DATE: 06/12/2019 SUBJECTIVE: The patient is able to answer the questions. However, he is very angry and agitated, is still refusing care and refusing vital signs, uncooperative. Cognitive impairment. Not able to be engaged during evaluation. MENTAL STATUS EXAMINATION: The patient is alert and oriented x3. Mood is dysphoric. Affect is constricted, congruent with mood. Thought process is concrete. Thought content, no suicidal or homicidal ideation. Cognition is impaired. Insight and judgment are impaired. ASSESSMENT: 1. HIV. 2. Schizophrenia. PLAN: 1. Continue current medications. 2. Provide the patient with reality orientation and supportive therapy. Miguel Smallwood M.D. DR: EAN JOB#: [id number] CC: NOAH
--- NOTE | 2019-06-18 00:21 | Coder Physician Query ---
PLEASE COMPLETE DOCUMENT BEFORE SIGNING Dear Dr. PEACE Date: 06/18/19 Team Lead/CDS Name: SARA JARRELL Exercise your independent professional judgment when responding to query. Question asked do not imply a particular answer is desired/expected. Clinical Documentation States: Hospital Course 54 year old male with paranoid schizophrenia and AIDS brought in by EMS due to aggressive behavior, per patient he doesn't like the nursing staff. Very difficult and refuses medical treatment 1. AMS, rule out acute toxic metabolic encephalopathy. ? HIV.AIDS dementia and behavioral issues related to HIV. refusing medications, history of non compliance. rule out infectious diseases. Doubt bacterial meningitis. labs unremarkable for infection, Tox negative. serologies ordered by ID UA pending- patient won't provide sample REFUSED MRI brain REFUSED morning labs 2. Chronic thrombocytopenia. associated with AIDS and chronic malnutrition. Evaluated by hematology on recent admission 3. Schizophrenia/ paranoid type. Continue Depakote and risperidone. 4.Hypothyroidism. Continue levothyroxine. TFTs are okay. Please indicate if known or suspected, the underlying cause of the AMS/ encephalopathy? PHYSICIAN RESPONSE:AMS/Encephalopathy due to underlying AIDS _kel peace 06/18/2019 KEL PEACE M.D. DATE & TIME [facility]
== END 2019-06-12 20:15 | DRG 892 ==
LOC: EDBD 01:37 → EMR 02:13 → 4E 02:32 → EDBEDREQ 04:02 → SDSOVERFLO 06-10 15:30 → 4E 06-10 15:32
DX: B20 Human immunodeficiency virus [HIV] disease (principal); G93.41 Metabolic encephalopathy; F20.0 Paranoid schizophrenia; E03.9 Hypothyroidism, unspecified; Z68.21 Body mass index [BMI] 21.0-21.9, adult; D69.59 Other secondary thrombocytopenia; F02.81 Dementia in other diseases classified elsewhere, unspecified severity, with behavioral disturbance; E43 Unspecified severe protein-calorie malnutrition; Z91.14 Patient's other noncompliance with medication regimen; R62.7 Adult failure to thrive; J43.9 Emphysema, unspecified; R45.1 Restlessness and agitation; B19.20 Unspecified viral hepatitis C without hepatic coma; R32 Unspecified urinary incontinence
CPT/HCPCS: 36415; 71045; 80053; 80329; 82140; 84439; 84443; 85007; 85025; 85610; 85730; 86360; 86592; 86635; 86777; 86778; 86780; 87040; 96360; 96361; 99285

== ENCOUNTER 2020-03-20 17:14 | Emergency (ER) | payer OTHER ==
[~2020-03-20] VITALS: Ht 180.3 cm; Wt 68.0 kg
[~2020-03-20 17:14] MED LIST changes: +BISACODYL10 M1 RC; +CEPHALEXIN500 MG ORAL; +INVEGA SUS156 MG/11 IM; +MIRTAZAPINE15 MG ORAL; +RISPERDAL2 MG ORAL; +VITAMIN C500 MG/11 PO
--- NOTE | 2020-03-20 18:09 | NUR ---
ED Nurse Note: pt arrived with ems from snf due to abdominal pain. pt denies n/v/d. pt is restles and yelling at staff
[2020-03-20 18:11] VITALS: BP 124/86
--- NOTE | 2020-03-20 18:12 | Emergency Room Report ---
History of Present Illness General Chief Complaint: Abdominal Pain Source: Patient, EMS Present Illness HPI Patient 54-year-old male brought in by [facility] for increased abdominal pain. Patient had prior history of schizophrenia and was poorly cooperative with history. Patient denies any current pain. Patient states that he is currently hungry. Prior history of HIV as well as renal stones.Patient was sent in from [facility]. Patient apparently had vomited x2 and had abdominal pain began earlier in the day Allergies: Coded Allergies: No Known Allergies (Unverified , 02/12/19) COVID-19 Screening Contact w/high risk pt: Yes Recent Travel to affected area: No Experienced COVID-19 symptoms?: No COVID-19 Testing performed PARTS LISTER: No Patient History Past Medical History: see triage record Reviewed Nursing Documentation: PMH: Agreed; PSxH: Agreed Nursing Documentation-PMH Past Medical History: No History, Except For Hx Cardiac Problems: No - HIV+, hypothyroid, anemia Hx Diabetes: No Hx Cancer: No Hx Gastrointestinal Problems: Yes - Gastric Ulcer History Of Psychiatric Problem: Yes - schizophrenia, depression Hx Neurological Problems: No Review of Systems All Other Systems: limited - Limited by poor cooperation Physical Exam Vital Signs Date Time Temp Pulse Resp B/P (MAP) Pulse Ox O2 Delivery O2 Flow Rate FiO2 03/20/20 17:27 97.9 114 20 124/86 (99) 95 Room Air General Appearance: alert, non-toxic, Chronically Ill Neck: full range of motion Respiratory: chest non-tender, lungs clear, normal breath sounds Cardiovascular #1: normal peripheral pulses, no edema Gastrointestinal: soft Musculoskeletal: normal inspection Neurologic: alert, motor strength/tone normal, oriented x3 Psychiatric: other - Agitated Skin: no rash Medical Decision Making Diagnostic Impression: Primary Impression: Emphysema lung Additional Impressions: Abdominal pain with vomiting Schizophrenia ER Course Patient presented for abdominal pain. Differential diagnosis include was not limited to gastroenteritis, ulcer, pancreatitis, gallstone among others. Patient has overall benign exam. Patient denies any current abdominal discomfort. Patient was given psychiatric medications due to somewhat agitated state. Patient refused CT imaging as well as laboratory testing. Patient was able to tolerate oral fluids as well as food. Patient appears to be stable for discharge back to his facility. Patient was discussed with Dr. Meyers and will be sent back to his facility. The patient is advised to follow up with primary care doctor in 1-2 days. Patient is advised to return if any worsening condition or if any changes in status that are concerning. This report is dictated with [employer] medical transcription supervisor software which may occasionally lead to discrepancies related to use of this software. Last Vital Signs Date Time Temp Pulse Resp B/P (MAP) Pulse Ox O2 Delivery O2 Flow Rate FiO2 03/20/20 17:27 97.9 114 20 124/86 (99) 95 Room Air Status: improved Disposition: SNF Condition: Stable Referrals: Juan Reyes MD (PCP) Hernando Alvarez MD Mar 20, 2020 18:12
[2020-03-20] MEDS ORDERED: BACTRIM DS TAB1 EAC1 ORAL (18:15)
[2020-03-20] MEDS ORDERED: PROSCAR5 MG ORAL (18:16)
[2020-03-20] MEDS ORDERED: ABACAVIR-LAMIV1 EACH PO (18:19)
[2020-03-20] MEDS ORDERED: DiphenhydrAMINE 50mg/ml Inj IM ONE (18:30)
[2020-03-20] MEDS ORDERED: Haloperidol 5mg/ml Inj IM ONE (18:30)
--- NOTE | 2020-03-20 20:20 | NUR ---
Requested sandwich-provided, ate with appetite. Refusing IV start or blood draw.MD aware.
--- NOTE | 2020-03-20 20:24 | NUR ---
Spoke with Sophia at [facility]- aware of possibility of patient going back.
[2020-03-20 20:29] VITALS: BP 124/87
--- NOTE | 2020-03-20 20:30 | NUR ---
Nurse Note: Pt refuses getting blood drawn and provide urine. Pt stated "leave. I want nothing from here." Pt consented to a CT scan. Provided food and water. Pt kept comfortable. All safety measures met; will continue to monitor.
--- NOTE | 2020-03-20 21:23 | NUR ---
spoke with Dr.Justin Meyers(covering for [facility])- OK to send patient back to [facility]. [facility] contacted-will check with [facility] for authorization for transport-will call me back.
== END 2020-03-20 22:15 ==
LOC: EDUNIT# 17:14 → EDBD 17:14 → EMR 18:07 → CANBEDREQ 21:26 → EMR 22:15
DX: R10.9 Unspecified abdominal pain (principal); R11.10 Vomiting, unspecified; F20.9 Schizophrenia, unspecified; J43.9 Emphysema, unspecified; F32.9 Major depressive disorder, single episode, unspecified; B20 Human immunodeficiency virus [HIV] disease; Z87.442 Personal history of urinary calculi; E03.9 Hypothyroidism, unspecified; R45.1 Restlessness and agitation
CPT/HCPCS: 96372; J1200; J1630; Z7502; 99283